=== PATIENT | female | born 1955 | race Caucasian/White ===

== ENCOUNTER 2018-12-25 12:12 | Inpatient (IN) ==
[2018-12-25] MEDS ORDERED: SODIUM CHLORIDE 0.9% 500 ML IV STA (13:37)
[2018-12-25 13:48] LABS: Basophils # 0.1 10*3/uL (0.0-0.2); Immature Granulocytes % 0.3 %; Immature Granulocytes Absolute 0.03 #; Lymphocytes % 14.5 % (21.3-54.2); Red Cell Distribution Width 13.1 % (9.3-17.3)
[2018-12-25 13:56] LABS: Alanine Aminotransferase 17 U/L (13-56); Albumin 3.4 G/DL (3.4-5.0); Alkaline Phosphatase 86 U/L (45-117); Aspartate Amino Transferase 11 U/L (0-37); Bilirubin,Total < 0.39 MG/DL (0.2-1.0); Blood Urea Nitrogen 12 MG/DL (7-18); Calcium 8.2 MG/DL (8.5-10.1); Glucose 96 MG/DL (74-106); Osmolality,Calculated 276.5 MOS/KG (273-304); Potassium 3.5 MMOL/L (3.5-5.1); Sodium 139 MMOL/L (136-145); Total Protein 6.4 G/DL (6.4-8.3)
[2018-12-25 14:09] LABS: Basophils % 0.7 % (0.0-0.8); Eosinophils # 0.2 10*3/uL (0.0-0.87); Hematocrit 39.9 VOL% (35.7-47.0); Lymphocytes # 1.3 10*3/uL (1.4-4.0); Mean Corpuscular HGB Conc 27.6 GM/DL (32-36); Mean Corpuscular Hemoglobin 28 PG (27-34); Mean Corpuscular Volume 101.5 FL (87-102); Mean Platelet Volume 10.2 FL (9.6-12.0); Monocytes % 10.9 % (1.7-12.7); Neutrophils # 6.4 10*3/uL (1.4-7.4); Neutrophils % 71.6 % (38.7-73.9); Platelet Count 236 T/CUMM (130-400); Red Blood Count 3.93 MC/CUMM (3.8-5.5)
[2018-12-25 14:18] LABS: Apearance,Urine CLEAR (Clear); Bilirubin,Urine Negative (Negative); Blood, Urine Large mg/dL (Negative); Glucose,Urine (UA) Negative (Negative); Ketones,Urine Negative (Negative); Mucus,Urine Occasional /LPF (Occasional); Nitrite,Urine Negative (Negative); Protein,Urine Negative; RBC,Urine 59 /HPF (0-4); Squamous Epithelial Cell,Urine Occasional /HPF (0-10); Urine Color Yellow (Yellow); Urine Specific Gravity 1.009 (1.001-1.035); Urine Urobilinogen < 2.0 EU/DL (0.2-1.0); WBC,Urine 1 /HPF (0-6)
[2018-12-25] MEDS ORDERED: ALBUTEROL/IPRATROPIUM 3 ML NEB RESP TX STA (15:03)
[2018-12-25] MEDS ORDERED: FUROSEMIDE 40 MG/4 ML VIAL IV STA (15:03)
[2018-12-25] MEDS ORDERED: PROMETHAZINE 25 MG/1 ML VIAL IM PRN (15:46)
[2018-12-25] MEDS ORDERED: ONDANSETRON 4 MG/2 ML VIAL IV PRN (15:46)
[2018-12-25] MEDS ORDERED: ASPIRIN 300 MG SUPP RECTAL ONE (15:50)
[2018-12-25 16:45] LABS: ABG Base Excess 10.8 MMOL/L (-2.5-2.5); ABG HCO3 42.2 MMOL/L (20-26); ABG Oxygen Saturation 97.7 % (95-100); ABG PO2 110.2 MM HG (80-95); ABG TCO2 45.5 MMOL/L (23-27)
[2018-12-25 16:52] LABS: ABG PCO2 107.5 MM HG (35-48); ABG PH 7.212 (7.35-7.45)
[2018-12-25] MEDS: HEPARIN 5,000 UNIT/1 ML VIAL SUBCUT SCH ×2 (18:02→23:27)
[2018-12-25] MEDS: methylPREDNISolone SOD SUC 40 MG/1 ML VIAL IV SCH ×2 (18:38→23:29)
[2018-12-25] MEDS: ALBUTEROL/IPRATROPIUM 3 ML NEB RESP TX SCH (20:00)
[2018-12-25] MEDS: THEOPHYLLINE ER 300 MG TABLET PO SCH (22:13)
[2018-12-25] MEDS: DOCUSATE SODIUM 100 MG CAPSULE PO SCH (22:13)
[2018-12-25 22:15] LABS: ABG Base Excess 12.3 MMOL/L (-2.5-2.5); ABG Oxygen Saturation 93.8 % (95-100); ABG PH 7.251 (7.35-7.45); ABG PO2 72.4 MM HG (80-95); ABG TCO2 40.4 MMOL/L (23-27); Allen Test Positive; Pt O2 Delivery Device Other
[2018-12-26] MEDS: ALBUTEROL/IPRATROPIUM 3 ML NEB RESP TX SCH ×4 (00:41→19:14)
[2018-12-26 04:15] LABS: ABG Base Excess 12.7 MMOL/L (-2.5-2.5); ABG HCO3 36.4 MMOL/L (20-26); ABG Oxygen Saturation 93.9 % (95-100); ABG PO2 72.6 MM HG (80-95); ABG TCO2 40.2 MMOL/L (23-27); Allen Test Positive; Pt O2 Delivery Device Other
[2018-12-26] MEDS: methylPREDNISolone SOD SUC 40 MG/1 ML VIAL IV SCH ×4 (04:27→21:55)
[2018-12-26 05:23] LABS: Basophils % 0.5 % (0.0-0.8); Hematocrit 38.5 VOL% (35.7-47.0); Hemoglobin 10.9 GM/DL (12.0-16.0); Immature Granulocytes % 0.4 %; Immature Granulocytes Absolute 0.03 #; Lymphocytes # 0.5 10*3/uL (1.4-4.0); Lymphocytes % 6.6 % (21.3-54.2); Mean Corpuscular HGB Conc 28.3 GM/DL (32-36); Mean Corpuscular Hemoglobin 28 PG (27-34); Mean Corpuscular Volume 99.5 FL (87-102); Mean Platelet Volume 10.2 FL (9.6-12.0); Monocytes # 0.3 10*3/uL (0.11-0.8); Neutrophils # 7.4 10*3/uL (1.4-7.4); Neutrophils % 89.5 % (38.7-73.9); Platelet Count 239 T/CUMM (130-400); Red Blood Count 3.87 MC/CUMM (3.8-5.5); Red Cell Distribution Width 13.1 % (9.3-17.3); White Blood Count 8.2 T/CUMM (4-12)
[2018-12-26 05:27] LABS: Albumin 3.1 G/DL (3.4-5.0); Bilirubin,Total 0.8 MG/DL (0.2-1.0); Calcium 8.4 MG/DL (8.5-10.1); Osmolality,Calculated 273.8 MOS/KG (273-304); Potassium 3.8 MMOL/L (3.5-5.1); Risk Ratio 3.21; Thyroid Stimulating Hormone 0.588 uIU/ml (0.358-3.74); Total Protein 6.6 G/DL (6.4-8.3); VLDL CHOLESTEROL 16.2 MG/DL
[2018-12-26] MEDS: DOCUSATE SODIUM 100 MG CAPSULE PO SCH ×2 (09:29→21:53)
[2018-12-26] MEDS: MONTELUKAST 10 MG TABLET PO SCH (09:29)
[2018-12-26] MEDS: METOPROLOL SUCCINATE XL 25 MG TABLET PO SCH (09:29)
[2018-12-26] MEDS: PANTOPRAZOLE 40 MG TABLET PO SCH (09:29)
[2018-12-26] MEDS: ASPIRIN EC 81 MG TABLET PO SCH (09:29)
[2018-12-26] MEDS: FUROSEMIDE 40 MG/4 ML VIAL IV SCH ×2 (09:32→16:55)
[2018-12-26] MEDS: HEPARIN 5,000 UNIT/1 ML VIAL SUBCUT SCH ×2 (09:32→16:55)
[2018-12-26] MEDS: MEROPENEM 500 MG in SODIUM CHLORIDE 0.9% 100 ML IV SCH ×2 (15:08→21:54)
[2018-12-26] MEDS: THEOPHYLLINE ER 300 MG TABLET PO SCH (21:53)
[2018-12-26] MEDS: ATORVASTATIN 40 MG TABLET PO SCH (21:53)
[2018-12-27] MEDS: ALBUTEROL/IPRATROPIUM 3 ML NEB RESP TX SCH ×4 (01:16→19:23)
[2018-12-27] MEDS: HEPARIN 5,000 UNIT/1 ML VIAL SUBCUT SCH ×4 (02:34→23:06)
[2018-12-27] MEDS: ACETAMINOPHEN 325 MG TABLET PO PRN ×2 (02:35→14:17)
[2018-12-27 03:19] LABS: ABG Base Excess 13.9 MMOL/L (-2.5-2.5); ABG HCO3 37.7 MMOL/L (20-26); ABG Oxygen Saturation 95.9 % (95-100); ABG PH 7.336 (7.35-7.45); ABG PO2 83.3 MM HG (80-95); ABG TCO2 39.5 MMOL/L (23-27); Allen Test Positive; Pt O2 Delivery Device Other
[2018-12-27 03:22] LABS: ABG PCO2 81.2 MM HG (35-48)
[2018-12-27] MEDS: methylPREDNISolone SOD SUC 40 MG/1 ML VIAL IV SCH ×4 (04:38→23:05)
[2018-12-27] MEDS: SIMETHICONE CHEW 125 MG TABLET PO PRN (04:38)
[2018-12-27 05:33] LABS: Albumin 2.9 G/DL (3.4-5.0); Bilirubin,Total 0.4 MG/DL (0.2-1.0); Calcium 8.1 MG/DL (8.5-10.1); Osmolality,Calculated 279.8 MOS/KG (273-304); Potassium 3.2 MMOL/L (3.5-5.1); Total Protein 6.1 G/DL (6.4-8.3)
[2018-12-27] MEDS: MEROPENEM 500 MG in SODIUM CHLORIDE 0.9% 100 ML IV SCH ×3 (05:44→23:05)
[2018-12-27 05:56] LABS: Basophils % 0.1 % (0.0-0.8); Hematocrit 34.9 VOL% (35.7-47.0); Immature Granulocytes % 0.5 %; Immature Granulocytes Absolute 0.05 #; Lymphocytes # 0.5 10*3/uL (1.4-4.0); Lymphocytes % 5.3 % (21.3-54.2); Mean Corpuscular HGB Conc 28.9 GM/DL (32-36); Mean Corpuscular Hemoglobin 28 PG (27-34); Mean Corpuscular Volume 97.8 FL (87-102); Mean Platelet Volume 10.5 FL (9.6-12.0); Monocytes # 0.5 10*3/uL (0.11-0.8); Neutrophils # 8.5 10*3/uL (1.4-7.4); Neutrophils % 89.1 % (38.7-73.9); Platelet Count 245 T/CUMM (130-400); Red Blood Count 3.57 MC/CUMM (3.8-5.5); Red Cell Distribution Width 13.1 % (9.3-17.3); White Blood Count 9.5 T/CUMM (4-12)
[2018-12-27 06:00] LABS: Hemoglobin 10.1 GM/DL (12.0-16.0)
[2018-12-27] MEDS ORDERED: MAGNESIUM SULF RIDER 4 GM in PREMIX 1 EACH IV PRN (07:02)
[2018-12-27] MEDS ORDERED: MAGNESIUM SULF RIDER 2 GM in PREMIX 1 EACH IV PRN (07:02)
[2018-12-27] MEDS: PANTOPRAZOLE 40 MG TABLET PO SCH (08:17)
[2018-12-27] MEDS: FUROSEMIDE 40 MG/4 ML VIAL IV SCH ×2 (08:17→16:05)
[2018-12-27] MEDS: MONTELUKAST 10 MG TABLET PO SCH (08:17)
[2018-12-27] MEDS: ASPIRIN EC 81 MG TABLET PO SCH (08:17)
[2018-12-27] MEDS: METOPROLOL SUCCINATE XL 25 MG TABLET PO SCH (08:17)
[2018-12-27] MEDS: DOCUSATE SODIUM 100 MG CAPSULE PO SCH ×2 (08:17→20:16)
[2018-12-27] MEDS: POTASSIUM CHLORIDE RIDER 10 MEQ in PREMIX 1 EACH IV PRN ×2 (09:01→14:59)
[2018-12-27] MEDS: THEOPHYLLINE ER 300 MG TABLET PO SCH (20:16)
[2018-12-27] MEDS: ATORVASTATIN 40 MG TABLET PO SCH (20:16)
[2018-12-27] MEDS: traZODone 50 MG TABLET PO PRN (20:38)
[2018-12-28] MEDS: ALBUTEROL/IPRATROPIUM 3 ML NEB RESP TX SCH ×4 (00:27→19:05)
[2018-12-28 04:58] LABS: ABG Base Excess 14.5 MMOL/L (-2.5-2.5); ABG HCO3 43.7 MMOL/L (20-26); ABG Oxygen Saturation 96.5 % (95-100); ABG PH 7.332 (7.35-7.45); ABG PO2 87.7 MM HG (80-95); ABG TCO2 46.3 MMOL/L (23-27); Allen Test Positive; Pt O2 Delivery Device Other
[2018-12-28 05:01] LABS: ABG PCO2 84.4 MM HG (35-48)
[2018-12-28] MEDS: methylPREDNISolone SOD SUC 40 MG/1 ML VIAL IV SCH ×4 (05:02→23:10)
[2018-12-28] MEDS: MEROPENEM 500 MG in SODIUM CHLORIDE 0.9% 100 ML IV SCH ×3 (05:02→23:09)
[2018-12-28 06:01] LABS: Basophils % 0.1 % (0.0-0.8); Immature Granulocytes % 0.6 %; Immature Granulocytes Absolute 0.07 #; Lymphocytes # 0.5 10*3/uL (1.4-4.0); Mean Corpuscular Hemoglobin 28 PG (27-34); Mean Corpuscular Volume 100.3 FL (87-102); Mean Platelet Volume 10.3 FL (9.6-12.0); Monocytes # 0.6 10*3/uL (0.11-0.8); Monocytes % 4.8 % (1.7-12.7); Neutrophils # 11.5 10*3/uL (1.4-7.4); Neutrophils % 90.5 % (38.7-73.9); Platelet Count 281 T/CUMM (130-400); Red Blood Count 3.74 MC/CUMM (3.8-5.5); Red Cell Distribution Width 13.1 % (9.3-17.3); White Blood Count 12.7 T/CUMM (4-12)
[2018-12-28 06:08] LABS: Albumin 3.1 G/DL (3.4-5.0); Bilirubin,Total 0.7 MG/DL (0.2-1.0); Calcium 8.1 MG/DL (8.5-10.1); Osmolality,Calculated 280.5 MOS/KG (273-304); Potassium 3.3 MMOL/L (3.5-5.1); Total Protein 6.4 G/DL (6.4-8.3)
[2018-12-28] MEDS: POTASSIUM CHLORIDE RIDER 10 MEQ in PREMIX 1 EACH IV PRN ×4 (06:30→14:58)
[2018-12-28 06:36] LABS: Hematocrit 36.9 VOL% (35.7-47.0); Hemoglobin 10.5 GM/DL (12.0-16.0)
[2018-12-28 06:47] LABS: Lymphocytes 2 % (20-55); Macrocytosis Slight; Total Cells Counted 100
[2018-12-28 06:48] LABS: Band Neutrophils 2 % (0-10)
[2018-12-28 06:49] LABS: Segmented Neutrophils 93 % (50-85)
[2018-12-28 06:50] LABS: Anisocytosis 1+; Hypochromasia 2+; Platelet Estimate Adequate; Tear Drop Cells Few
[2018-12-28] MEDS: FUROSEMIDE 40 MG/4 ML VIAL IV SCH ×2 (08:12→16:18)
[2018-12-28] MEDS: HEPARIN 5,000 UNIT/1 ML VIAL SUBCUT SCH ×3 (08:12→23:10)
[2018-12-28] MEDS: MONTELUKAST 10 MG TABLET PO SCH (08:12)
[2018-12-28] MEDS: METOPROLOL SUCCINATE XL 25 MG TABLET PO SCH (08:12)
[2018-12-28] MEDS: ASPIRIN EC 81 MG TABLET PO SCH (08:12)
[2018-12-28] MEDS: DOCUSATE SODIUM 100 MG CAPSULE PO SCH ×2 (08:12→20:12)
[2018-12-28] MEDS: PANTOPRAZOLE 40 MG TABLET PO SCH (08:12)
[2018-12-28] MEDS: THEOPHYLLINE ER 300 MG TABLET PO SCH (20:11)
[2018-12-28] MEDS: ATORVASTATIN 40 MG TABLET PO SCH (20:12)
[2018-12-28] MEDS: traZODone 50 MG TABLET PO PRN (20:12)
[2018-12-29] MEDS: ALBUTEROL/IPRATROPIUM 3 ML NEB RESP TX SCH ×4 (01:04→19:21)
[2018-12-29 04:22] LABS: ABG HCO3 33.7 MMOL/L (20-26); ABG Oxygen Saturation 96.3 % (95-100); ABG PH 7.332 (7.35-7.45); ABG TCO2 35.2 MMOL/L (23-27); Allen Test Positive
[2018-12-29 04:24] LABS: ABG PCO2 73.5 MM HG (35-48)
[2018-12-29] MEDS: methylPREDNISolone SOD SUC 40 MG/1 ML VIAL IV SCH ×4 (05:04→23:08)
[2018-12-29] MEDS: MEROPENEM 500 MG in SODIUM CHLORIDE 0.9% 100 ML IV SCH ×3 (05:04→23:08)
[2018-12-29] MEDS: ACETAMINOPHEN 325 MG TABLET PO PRN (05:05)
[2018-12-29 06:28] LABS: Alanine Aminotransferase 14 U/L (13-56); Albumin 2.7 G/DL (3.4-5.0); Alkaline Phosphatase 64 U/L (45-117); Aspartate Amino Transferase 7 U/L (0-37); Bilirubin,Total < 0.39 MG/DL (0.2-1.0); Blood Urea Nitrogen 24 MG/DL (7-18); Calcium 7.9 MG/DL (8.5-10.1); Glucose 144 MG/DL (74-106); Osmolality,Calculated 287.3 MOS/KG (273-304); Sodium 141 MMOL/L (136-145); Total Protein 5.8 G/DL (6.4-8.3)
[2018-12-29 06:30] LABS: Basophils % 0.1 % (0.0-0.8); Hematocrit 36.9 VOL% (35.7-47.0); Hemoglobin 10.5 GM/DL (12.0-16.0); Immature Granulocytes % 0.5 %; Immature Granulocytes Absolute 0.07 #; Lymphocytes # 0.4 10*3/uL (1.4-4.0); Mean Corpuscular HGB Conc 28.5 GM/DL (32-36); Mean Corpuscular Hemoglobin 28 PG (27-34); Mean Corpuscular Volume 99.5 FL (87-102); Mean Platelet Volume 10.5 FL (9.6-12.0); Monocytes # 0.8 10*3/uL (0.11-0.8); Monocytes % 5.8 % (1.7-12.7); Neutrophils # 12.3 10*3/uL (1.4-7.4); Neutrophils % 90.6 % (38.7-73.9); Platelet Count 301 T/CUMM (130-400); Red Blood Count 3.71 MC/CUMM (3.8-5.5); Red Cell Distribution Width 13.3 % (9.3-17.3); White Blood Count 13.6 T/CUMM (4-12)
[2018-12-29 06:56] LABS: Band Neutrophils 5 % (0-10); Lymphocytes 4 % (20-55); Macrocytosis 1+; Platelet Estimate Normal; Segmented Neutrophils 84 % (50-85); Spherocytes Few; Total Cells Counted 100
[2018-12-29] MEDS: FUROSEMIDE 40 MG/4 ML VIAL IV SCH ×2 (08:08→16:30)
[2018-12-29] MEDS: METOPROLOL SUCCINATE XL 25 MG TABLET PO SCH (08:08)
[2018-12-29] MEDS: MONTELUKAST 10 MG TABLET PO SCH (08:08)
[2018-12-29] MEDS: POTASSIUM CHLORIDE 20 MEQ TABLET PO SCH (08:08)
[2018-12-29] MEDS: ASPIRIN EC 81 MG TABLET PO SCH (08:08)
[2018-12-29] MEDS: HEPARIN 5,000 UNIT/1 ML VIAL SUBCUT SCH ×3 (08:09→23:08)
[2018-12-29] MEDS: DOCUSATE SODIUM 100 MG CAPSULE PO SCH ×2 (08:09→20:27)
[2018-12-29] MEDS: PANTOPRAZOLE 40 MG TABLET PO SCH (08:09)
[2018-12-29] MEDS: POTASSIUM CHLORIDE RIDER 10 MEQ in PREMIX 1 EACH IV PRN ×2 (08:20→16:41)
[2018-12-29] MEDS: THEOPHYLLINE ER 300 MG TABLET PO SCH (20:27)
[2018-12-29] MEDS: traZODone 50 MG TABLET PO PRN (20:28)
[2018-12-29] MEDS: ATORVASTATIN 40 MG TABLET PO SCH (20:28)
[2018-12-30] MEDS: ALBUTEROL/IPRATROPIUM 3 ML NEB RESP TX SCH ×4 (00:11→19:36)
[2018-12-30 05:05] LABS: ABG Base Excess 9.2 MMOL/L (-2.5-2.5); ABG HCO3 32.9 MMOL/L (20-26); ABG Oxygen Saturation 94.3 % (95-100); ABG PH 7.321 (7.35-7.45); ABG TCO2 34.7 MMOL/L (23-27); Pt O2 Delivery Device Ventilator
[2018-12-30 05:06] LABS: ABG PCO2 74.1 MM HG (35-48)
[2018-12-30] MEDS: methylPREDNISolone SOD SUC 40 MG/1 ML VIAL IV SCH ×4 (05:18→22:09)
[2018-12-30] MEDS: MEROPENEM 500 MG in SODIUM CHLORIDE 0.9% 100 ML IV SCH ×3 (05:19→22:10)
[2018-12-30 06:07] LABS: Calcium 7.8 MG/DL (8.5-10.1); Osmolality,Calculated 291.3 MOS/KG (273-304); Potassium 3.6 MMOL/L (3.5-5.1)
[2018-12-30 06:12] LABS: Basophils % 0.1 % (0.0-0.8); Hematocrit 36.6 VOL% (35.7-47.0); Immature Granulocytes % 0.6 %; Immature Granulocytes Absolute 0.08 #; Lymphocytes # 0.5 10*3/uL (1.4-4.0); Lymphocytes % 3.4 % (21.3-54.2); Mean Corpuscular HGB Conc 28.7 GM/DL (32-36); Mean Corpuscular Hemoglobin 29 PG (27-34); Mean Corpuscular Volume 99.7 FL (87-102); Mean Platelet Volume 10.5 FL (9.6-12.0); Monocytes # 0.9 10*3/uL (0.11-0.8); Monocytes % 6.7 % (1.7-12.7); Neutrophils # 11.8 10*3/uL (1.4-7.4); Neutrophils % 89.2 % (38.7-73.9); Platelet Count 289 T/CUMM (130-400); Red Blood Count 3.67 MC/CUMM (3.8-5.5); Red Cell Distribution Width 13.5 % (9.3-17.3); White Blood Count 13.2 T/CUMM (4-12)
[2018-12-30 06:17] LABS: Hemoglobin 10.5 GM/DL (12.0-16.0)
[2018-12-30 06:19] LABS: Band Neutrophils 1 % (0-10); Hypochromasia 1+; Lymphocytes 1 % (20-55); Platelet Estimate Adequate; Segmented Neutrophils 95 % (50-85); Total Cells Counted 100
[2018-12-30 06:20] LABS: Macrocytosis Slight
[2018-12-30] MEDS: FUROSEMIDE 40 MG/4 ML VIAL IV SCH ×2 (07:57→15:37)
[2018-12-30] MEDS: HEPARIN 5,000 UNIT/1 ML VIAL SUBCUT SCH ×2 (07:57→15:39)
[2018-12-30] MEDS: ASPIRIN EC 81 MG TABLET PO SCH (08:02)
[2018-12-30] MEDS: POTASSIUM CHLORIDE 20 MEQ TABLET PO SCH (08:02)
[2018-12-30] MEDS: METOPROLOL SUCCINATE XL 25 MG TABLET PO SCH (08:02)
[2018-12-30] MEDS: MONTELUKAST 10 MG TABLET PO SCH (08:02)
[2018-12-30] MEDS: PANTOPRAZOLE 40 MG TABLET PO SCH (08:02)
[2018-12-30] MEDS: DOCUSATE SODIUM 100 MG CAPSULE PO SCH ×2 (08:02→20:37)
[2018-12-30] MEDS: amLODIPine 2.5 MG TABLET PO SCH (16:40)
[2018-12-30] MEDS: CITALOPRAM 20 MG TABLET PO SCH (16:56)
[2018-12-30] MEDS ORDERED: CITALOPRAM 20 MG TABLET PO SCH (17:00)
[2018-12-30] MEDS: THEOPHYLLINE ER 300 MG TABLET PO SCH (20:37)
[2018-12-30] MEDS: traZODone 50 MG TABLET PO PRN (20:37)
[2018-12-30] MEDS: ATORVASTATIN 40 MG TABLET PO SCH (20:37)
[2018-12-31] MEDS: HEPARIN 5,000 UNIT/1 ML VIAL SUBCUT SCH ×3 (00:16→16:15)
[2018-12-31] MEDS: ALBUTEROL/IPRATROPIUM 3 ML NEB RESP TX SCH ×4 (00:21→20:14)
[2018-12-31 03:42] LABS: ABG Base Excess 11.5 MMOL/L (-2.5-2.5); ABG HCO3 35.2 MMOL/L (20-26); ABG PH 7.309 (7.35-7.45); ABG PO2 69.9 MM HG (80-95); ABG TCO2 37.7 MMOL/L (23-27); Allen Test Positive; Pt O2 Delivery Device Other
[2018-12-31 03:44] LABS: ABG PCO2 82.2 MM HG (35-48)
[2018-12-31] MEDS: MEROPENEM 500 MG in SODIUM CHLORIDE 0.9% 100 ML IV SCH ×3 (05:19→21:10)
[2018-12-31] MEDS: methylPREDNISolone SOD SUC 40 MG/1 ML VIAL IV SCH ×4 (05:19→21:11)
[2018-12-31 05:53] LABS: Albumin 2.4 G/DL (3.4-5.0); Bilirubin,Total 0.4 MG/DL (0.2-1.0); Osmolality,Calculated 286.4 MOS/KG (273-304); Potassium 3.8 MMOL/L (3.5-5.1); Total Protein 5.3 G/DL (6.4-8.3)
[2018-12-31] MEDS: POTASSIUM CHLORIDE RIDER 10 MEQ in PREMIX 1 EACH IV PRN ×2 (06:17→07:18)
[2018-12-31 06:34] LABS: Basophils % 0.2 % (0.0-0.8); Hematocrit 37.4 VOL% (35.7-47.0); Immature Granulocytes % 1.5 %; Immature Granulocytes Absolute 0.23 #; Lymphocytes # 0.9 10*3/uL (1.4-4.0); Lymphocytes % 5.8 % (21.3-54.2); Mean Corpuscular HGB Conc 27.8 GM/DL (32-36); Mean Corpuscular Hemoglobin 28 PG (27-34); Mean Corpuscular Volume 101.4 FL (87-102); Mean Platelet Volume 10.4 FL (9.6-12.0); Monocytes # 1.2 10*3/uL (0.11-0.8); Neutrophils # 12.6 10*3/uL (1.4-7.4); Neutrophils % 84.5 % (38.7-73.9); Platelet Count 287 T/CUMM (130-400); Red Blood Count 3.69 MC/CUMM (3.8-5.5); Red Cell Distribution Width 13.3 % (9.3-17.3); White Blood Count 14.9 T/CUMM (4-12)
[2018-12-31 06:35] LABS: Hemoglobin 10.4 GM/DL (12.0-16.0)
[2018-12-31 06:46] LABS: Platelet Estimate Normal; Polychromasia Few
[2018-12-31] MEDS: FUROSEMIDE 40 MG/4 ML VIAL IV SCH ×2 (09:08→16:16)
[2018-12-31] MEDS: ASPIRIN EC 81 MG TABLET PO SCH (09:09)
[2018-12-31] MEDS: DOCUSATE SODIUM 100 MG CAPSULE PO SCH ×2 (09:09→20:53)
[2018-12-31] MEDS: CITALOPRAM 20 MG TABLET PO SCH (09:09)
[2018-12-31] MEDS: MONTELUKAST 10 MG TABLET PO SCH (09:10)
[2018-12-31] MEDS: amLODIPine 2.5 MG TABLET PO SCH (09:10)
[2018-12-31] MEDS: POTASSIUM CHLORIDE 20 MEQ TABLET PO SCH (09:10)
[2018-12-31] MEDS: METOPROLOL SUCCINATE XL 25 MG TABLET PO SCH (09:10)
[2018-12-31] MEDS: PANTOPRAZOLE 40 MG TABLET PO SCH (09:10)
[2018-12-31] MEDS: ATORVASTATIN 40 MG TABLET PO SCH (20:52)
[2018-12-31] MEDS: THEOPHYLLINE ER 300 MG TABLET PO SCH (20:53)
[2018-12-31] MEDS: traZODone 50 MG TABLET PO PRN (22:45)
[2019-01-01] MEDS: HEPARIN 5,000 UNIT/1 ML VIAL SUBCUT SCH ×3 (00:19→15:13)
[2019-01-01] MEDS: ALBUTEROL/IPRATROPIUM 3 ML NEB RESP TX SCH ×4 (01:16→19:07)
[2019-01-01 04:00] LABS: ABG Base Excess 11.6 MMOL/L (-2.5-2.5); ABG HCO3 35.3 MMOL/L (20-26); ABG PH 7.294 (7.35-7.45); ABG PO2 74.5 MM HG (80-95); ABG TCO2 38.3 MMOL/L (23-27); Allen Test Positive; Pt O2 Delivery Device Other
[2019-01-01 04:03] LABS: ABG PCO2 86.4 MM HG (35-48)
[2019-01-01] MEDS: methylPREDNISolone SOD SUC 40 MG/1 ML VIAL IV SCH ×4 (04:59→23:53)
[2019-01-01] MEDS: MEROPENEM 500 MG in SODIUM CHLORIDE 0.9% 100 ML IV SCH (05:02)
[2019-01-01] MEDS: CLORAZEPATE 3.75 MG TABLET PO PRN (05:08)
[2019-01-01 05:46] LABS: Albumin 2.8 G/DL (3.4-5.0); Bilirubin,Total 1.1 MG/DL (0.2-1.0); Calcium 7.9 MG/DL (8.5-10.1); Osmolality,Calculated 286.3 MOS/KG (273-304); Total Protein 5.4 G/DL (6.4-8.3)
[2019-01-01 05:59] LABS: Basophils % 0.2 % (0.0-0.8); Hematocrit 37.9 VOL% (35.7-47.0); Immature Granulocytes Absolute 0.34 #; Lymphocytes # 0.7 10*3/uL (1.4-4.0); Lymphocytes % 3.9 % (21.3-54.2); Mean Corpuscular Hemoglobin 28 PG (27-34); Mean Corpuscular Volume 100.8 FL (87-102); Mean Platelet Volume 10.3 FL (9.6-12.0); Monocytes # 1.1 10*3/uL (0.11-0.8); Monocytes % 6.4 % (1.7-12.7); Neutrophils % 87.5 % (38.7-73.9); Platelet Count 316 T/CUMM (130-400); Red Blood Count 3.76 MC/CUMM (3.8-5.5); Red Cell Distribution Width 13.6 % (9.3-17.3); White Blood Count 17.1 T/CUMM (4-12)
[2019-01-01 06:02] LABS: Hemoglobin 10.6 GM/DL (12.0-16.0)
[2019-01-01 06:20] LABS: Band Neutrophils 1 % (0-10); Hypochromasia 1+; Lymphocytes 1 % (20-55); Ovalocytes Slight; Platelet Estimate Adequate; Segmented Neutrophils 90 % (50-85); Total Cells Counted 100
[2019-01-01 07:35] LABS: ABG Base Excess 11.4 MMOL/L (-2.5-2.5); ABG HCO3 35.2 MMOL/L (20-26); ABG Oxygen Saturation 95.1 % (95-100); ABG PH 7.306 (7.35-7.45); ABG TCO2 37.7 MMOL/L (23-27)
[2019-01-01 07:37] LABS: ABG PCO2 83.2 MM HG (35-48)
[2019-01-01] MEDS: METOPROLOL SUCCINATE XL 25 MG TABLET PO SCH (09:18)
[2019-01-01] MEDS: DOCUSATE SODIUM 100 MG CAPSULE PO SCH ×2 (09:18→20:46)
[2019-01-01] MEDS: ASPIRIN EC 81 MG TABLET PO SCH (09:18)
[2019-01-01] MEDS: CITALOPRAM 20 MG TABLET PO SCH (09:18)
[2019-01-01] MEDS: amLODIPine 2.5 MG TABLET PO SCH (09:19)
[2019-01-01] MEDS: MONTELUKAST 10 MG TABLET PO SCH (09:19)
[2019-01-01] MEDS: PANTOPRAZOLE 40 MG TABLET PO SCH (09:19)
[2019-01-01] MEDS: POTASSIUM CHLORIDE 20 MEQ TABLET PO SCH (09:19)
[2019-01-01] MEDS: FUROSEMIDE 40 MG/4 ML VIAL IV SCH ×2 (09:20→15:13)
[2019-01-01] MEDS: traZODone 50 MG TABLET PO PRN (20:46)
[2019-01-01] MEDS: THEOPHYLLINE ER 300 MG TABLET PO SCH (20:46)
[2019-01-01] MEDS: ATORVASTATIN 40 MG TABLET PO SCH (20:46)
[2019-01-02] MEDS: HEPARIN 5,000 UNIT/1 ML VIAL SUBCUT SCH ×4 (00:05→23:21)
[2019-01-02] MEDS: ALBUTEROL/IPRATROPIUM 3 ML NEB RESP TX SCH ×4 (00:09→19:01)
[2019-01-02] MEDS: ACETAMINOPHEN 325 MG TABLET PO PRN (00:14)
[2019-01-02] MEDS: methylPREDNISolone SOD SUC 40 MG/1 ML VIAL IV SCH ×3 (04:20→20:01)
[2019-01-02 05:34] LABS: Calcium 7.9 MG/DL (8.5-10.1); Osmolality,Calculated 281.7 MOS/KG (273-304); Potassium 4.4 MMOL/L (3.5-5.1)
[2019-01-02 05:51] LABS: Basophils % 0.2 % (0.0-0.8); Hematocrit 36.3 VOL% (35.7-47.0); Immature Granulocytes % 2.1 %; Immature Granulocytes Absolute 0.38 #; Lymphocytes # 0.6 10*3/uL (1.4-4.0); Lymphocytes % 3.5 % (21.3-54.2); Mean Corpuscular HGB Conc 28.4 GM/DL (32-36); Mean Corpuscular Hemoglobin 28 PG (27-34); Mean Corpuscular Volume 99.5 FL (87-102); Mean Platelet Volume 10.2 FL (9.6-12.0); Monocytes # 0.8 10*3/uL (0.11-0.8); Monocytes % 4.7 % (1.7-12.7); Neutrophils # 16.2 10*3/uL (1.4-7.4); Neutrophils % 89.5 % (38.7-73.9); Platelet Count 322 T/CUMM (130-400); Red Blood Count 3.65 MC/CUMM (3.8-5.5); Red Cell Distribution Width 13.5 % (9.3-17.3)
[2019-01-02 05:57] LABS: Hemoglobin 10.3 GM/DL (12.0-16.0); Hypochromasia 1+; Macrocytosis Slight
[2019-01-02 05:58] LABS: Platelet Estimate Normal
[2019-01-02 07:14] LABS: Anisocytosis Slight; Band Neutrophils 6 % (0-10); Lymphocytes 7 % (20-55); Segmented Neutrophils 85 % (50-85); Total Cells Counted 100
[2019-01-02] MEDS: METOPROLOL SUCCINATE XL 25 MG TABLET PO SCH (08:39)
[2019-01-02] MEDS: ASPIRIN EC 81 MG TABLET PO SCH (08:39)
[2019-01-02] MEDS: FUROSEMIDE 40 MG TABLET PO SCH ×2 (08:40→15:57)
[2019-01-02] MEDS: MONTELUKAST 10 MG TABLET PO SCH (08:40)
[2019-01-02] MEDS: amLODIPine 2.5 MG TABLET PO SCH (08:40)
[2019-01-02] MEDS: CITALOPRAM 20 MG TABLET PO SCH (08:40)
[2019-01-02] MEDS: DOCUSATE SODIUM 100 MG CAPSULE PO SCH ×2 (08:40→20:03)
[2019-01-02] MEDS: PANTOPRAZOLE 40 MG TABLET PO SCH (08:40)
[2019-01-02] MEDS: POTASSIUM CHLORIDE 20 MEQ TABLET PO SCH (08:41)
[2019-01-02 10:38] LABS: ABG Base Excess 10.9 MMOL/L (-2.5-2.5); ABG HCO3 34.5 MMOL/L (20-26); ABG Oxygen Saturation 90.5 % (95-100); ABG PH 7.308 (7.35-7.45); ABG PO2 62.4 MM HG (80-95)
[2019-01-02 10:41] LABS: ABG PCO2 81.7 MM HG (35-48)
[2019-01-02] MEDS: CLORAZEPATE 3.75 MG TABLET PO PRN (12:32)
[2019-01-02] MEDS: FLUCONAZOLE INJ 100 MG in IV BAG 1 EACH IV SCH (13:39)
[2019-01-02] MEDS: THEOPHYLLINE ER 300 MG TABLET PO SCH (20:02)
[2019-01-02] MEDS: ATORVASTATIN 40 MG TABLET PO SCH (20:03)
[2019-01-02] MEDS: traZODone 50 MG TABLET PO PRN (23:22)
[2019-01-03] MEDS: ALBUTEROL/IPRATROPIUM 3 ML NEB RESP TX SCH ×4 (01:03→19:28)
[2019-01-03 04:28] LABS: Allen Test Positive; Pt O2 Delivery Device Other
[2019-01-03 04:31] LABS: ABG Base Excess 11.8 MMOL/L (-2.5-2.5); ABG HCO3 35.3 MMOL/L (20-26); ABG Oxygen Saturation 86.5 % (95-100); ABG PH 7.341 (7.35-7.45); ABG PO2 53.3 MM HG (80-95)
[2019-01-03 05:30] LABS: ABG PCO2 75.6 MM HG (35-48)
[2019-01-03 05:32] LABS: Calcium 7.9 MG/DL (8.5-10.1); Osmolality,Calculated 282.7 MOS/KG (273-304); Potassium 4.2 MMOL/L (3.5-5.1)
[2019-01-03 05:33] LABS: Basophils # 0.1 10*3/uL (0.0-0.2); Basophils % 0.3 % (0.0-0.8); Eosinophils % 0.1 % (0.00-10.9); Hematocrit 39.2 VOL% (35.7-47.0); Hemoglobin 11.2 GM/DL (12.0-16.0); Immature Granulocytes % 2.8 %; Immature Granulocytes Absolute 0.52 #; Lymphocytes # 0.6 10*3/uL (1.4-4.0); Lymphocytes % 3.5 % (21.3-54.2); Mean Corpuscular HGB Conc 28.6 GM/DL (32-36); Mean Corpuscular Hemoglobin 29 PG (27-34); Mean Platelet Volume 10.5 FL (9.6-12.0); Monocytes # 0.8 10*3/uL (0.11-0.8); Monocytes % 4.5 % (1.7-12.7); Neutrophils # 16.3 10*3/uL (1.4-7.4); Neutrophils % 88.8 % (38.7-73.9); Platelet Count 321 T/CUMM (130-400); Red Blood Count 3.92 MC/CUMM (3.8-5.5); Red Cell Distribution Width 13.6 % (9.3-17.3); White Blood Count 18.3 T/CUMM (4-12)
[2019-01-03 05:50] LABS: Hypochromasia 1+; Lymphocytes 3 % (20-55); Platelet Estimate Adequate; Segmented Neutrophils 92 % (50-85); Total Cells Counted 100
[2019-01-03 05:51] LABS: Macrocytosis Slight
[2019-01-03] MEDS: amLODIPine 2.5 MG TABLET PO SCH (08:20)
[2019-01-03] MEDS: ASPIRIN EC 81 MG TABLET PO SCH (08:20)
[2019-01-03] MEDS: PANTOPRAZOLE 40 MG TABLET PO SCH (08:20)
[2019-01-03] MEDS: HEPARIN 5,000 UNIT/1 ML VIAL SUBCUT SCH ×2 (08:20→16:15)
[2019-01-03] MEDS: MONTELUKAST 10 MG TABLET PO SCH (08:20)
[2019-01-03] MEDS: METOPROLOL SUCCINATE XL 25 MG TABLET PO SCH (08:20)
[2019-01-03] MEDS: methylPREDNISolone SOD SUC 40 MG/1 ML VIAL IV SCH ×2 (08:20→21:50)
[2019-01-03] MEDS: FUROSEMIDE 40 MG TABLET PO SCH ×2 (08:21→16:15)
[2019-01-03] MEDS: CITALOPRAM 20 MG TABLET PO SCH (08:21)
[2019-01-03] MEDS: POTASSIUM CHLORIDE 20 MEQ TABLET PO SCH (08:21)
[2019-01-03] MEDS: DOCUSATE SODIUM 100 MG CAPSULE PO SCH ×2 (08:21→21:51)
[2019-01-03] MEDS: FLUCONAZOLE INJ 100 MG in IV BAG 1 EACH IV SCH (11:25)
[2019-01-03] MEDS: CLORAZEPATE 3.75 MG TABLET PO PRN (11:26)
[2019-01-03] MEDS: ATORVASTATIN 40 MG TABLET PO SCH (21:51)
[2019-01-03] MEDS: ACETAMINOPHEN 325 MG TABLET PO PRN (21:51)
[2019-01-03] MEDS: THEOPHYLLINE ER 300 MG TABLET PO SCH (21:51)
[2019-01-04] MEDS: HEPARIN 5,000 UNIT/1 ML VIAL SUBCUT SCH ×3 (00:09→16:45)
[2019-01-04] MEDS: ALBUTEROL/IPRATROPIUM 3 ML NEB RESP TX SCH ×4 (00:12→19:50)
[2019-01-04 03:57] LABS: ABG Base Excess 13.9 MMOL/L (-2.5-2.5); ABG HCO3 42.1 MMOL/L (20-26); ABG Oxygen Saturation 79.8 % (95-100); ABG PO2 46.1 MM HG (80-95); ABG TCO2 44.4 MMOL/L (23-27); Allen Test Positive; Pt O2 Delivery Device CPAP
[2019-01-04 03:59] LABS: ABG PCO2 74.5 MM HG (35-48)
[2019-01-04 05:30] LABS: Calcium 7.7 MG/DL (8.5-10.1); Osmolality,Calculated 285.5 MOS/KG (273-304); Potassium 4.4 MMOL/L (3.5-5.1)
[2019-01-04 05:44] LABS: Basophils % 0.2 % (0.0-0.8); Hematocrit 37.1 VOL% (35.7-47.0); Immature Granulocytes Absolute 0.41 #; Lymphocytes # 0.4 10*3/uL (1.4-4.0); Lymphocytes % 2.1 % (21.3-54.2); Mean Corpuscular HGB Conc 28.6 GM/DL (32-36); Mean Corpuscular Hemoglobin 29 PG (27-34); Mean Corpuscular Volume 100.8 FL (87-102); Mean Platelet Volume 10.4 FL (9.6-12.0); Monocytes # 0.7 10*3/uL (0.11-0.8); Monocytes % 3.4 % (1.7-12.7); Neutrophils # 19.3 10*3/uL (1.4-7.4); Neutrophils % 92.3 % (38.7-73.9); Platelet Count 297 T/CUMM (130-400); Red Blood Count 3.68 MC/CUMM (3.8-5.5); Red Cell Distribution Width 13.8 % (9.3-17.3); White Blood Count 20.9 T/CUMM (4-12)
[2019-01-04 05:46] LABS: Hemoglobin 10.6 GM/DL (12.0-16.0)
[2019-01-04 05:49] LABS: Lymphocytes 4 % (20-55); Platelet Estimate Normal; Polychromasia Few; Segmented Neutrophils 95 % (50-85); Total Cells Counted 100
[2019-01-04] MEDS: methylPREDNISolone SOD SUC 40 MG/1 ML VIAL IV SCH ×2 (08:53→19:57)
[2019-01-04] MEDS: POTASSIUM CHLORIDE 20 MEQ TABLET PO SCH (08:59)
[2019-01-04] MEDS: ASPIRIN EC 81 MG TABLET PO SCH (09:00)
[2019-01-04] MEDS: amLODIPine 2.5 MG TABLET PO SCH (09:00)
[2019-01-04] MEDS: MONTELUKAST 10 MG TABLET PO SCH (09:00)
[2019-01-04] MEDS: CITALOPRAM 20 MG TABLET PO SCH (09:00)
[2019-01-04] MEDS: FUROSEMIDE 40 MG TABLET PO SCH ×2 (09:01→16:46)
[2019-01-04] MEDS: DOCUSATE SODIUM 100 MG CAPSULE PO SCH ×2 (09:01→21:49)
[2019-01-04] MEDS: PANTOPRAZOLE 40 MG TABLET PO SCH (09:01)
[2019-01-04] MEDS: METOPROLOL SUCCINATE XL 25 MG TABLET PO SCH (09:05)
[2019-01-04] MEDS: acetaZOLAMIDE 250 MG TABLET PO SCH ×2 (09:05→21:49)
[2019-01-04] MEDS: FLUCONAZOLE INJ 100 MG in IV BAG 1 EACH IV SCH (10:56)
[2019-01-04] MEDS: SIMETHICONE CHEW 125 MG TABLET PO PRN (15:41)
[2019-01-04] MEDS: CLORAZEPATE 3.75 MG TABLET PO PRN (20:01)
[2019-01-04] MEDS: THEOPHYLLINE ER 300 MG TABLET PO SCH (21:49)
[2019-01-04] MEDS: ATORVASTATIN 40 MG TABLET PO SCH (21:49)
[2019-01-05] MEDS: HEPARIN 5,000 UNIT/1 ML VIAL SUBCUT SCH ×3 (00:48→15:49)
[2019-01-05] MEDS: ALBUTEROL/IPRATROPIUM 3 ML NEB RESP TX SCH ×4 (00:49→19:28)
[2019-01-05] MEDS: CLORAZEPATE 3.75 MG TABLET PO PRN ×3 (00:52→13:45)
[2019-01-05 03:47] LABS: ABG Base Excess 11.3 MMOL/L (-2.5-2.5); ABG HCO3 34.6 MMOL/L (20-26); ABG Oxygen Saturation 76.1 % (95-100); ABG PH 7.365 (7.35-7.45); ABG PO2 42.4 MM HG (80-95); ABG TCO2 35.8 MMOL/L (23-27); Allen Test Positive; Pt O2 Delivery Device CPAP
[2019-01-05 03:50] LABS: ABG PCO2 69.4 MM HG (35-48)
[2019-01-05 04:41] LABS: Calcium 7.8 MG/DL (8.5-10.1); Osmolality,Calculated 280.7 MOS/KG (273-304)
[2019-01-05 04:54] LABS: Basophils % 0.2 % (0.0-0.8); Hematocrit 37.1 VOL% (35.7-47.0); Hemoglobin 10.6 GM/DL (12.0-16.0); Immature Granulocytes % 2.8 %; Immature Granulocytes Absolute 0.51 #; Lymphocytes # 0.7 10*3/uL (1.4-4.0); Lymphocytes % 3.8 % (21.3-54.2); Mean Corpuscular HGB Conc 28.6 GM/DL (32-36); Mean Corpuscular Hemoglobin 28 PG (27-34); Mean Corpuscular Volume 99.2 FL (87-102); Mean Platelet Volume 10.3 FL (9.6-12.0); Monocytes % 5.5 % (1.7-12.7); Neutrophils # 16.1 10*3/uL (1.4-7.4); Neutrophils % 87.7 % (38.7-73.9); Platelet Count 295 T/CUMM (130-400); Red Blood Count 3.74 MC/CUMM (3.8-5.5); Red Cell Distribution Width 13.9 % (9.3-17.3); White Blood Count 18.4 T/CUMM (4-12)
[2019-01-05 05:22] LABS: Lymphocytes 6 % (20-55); Myelocytes 1 %; Segmented Neutrophils 88 % (50-85)
[2019-01-05 05:23] LABS: Platelet Estimate Normal; Total Cells Counted 100
[2019-01-05 05:24] LABS: Polychromasia Few
[2019-01-05] MEDS: methylPREDNISolone SOD SUC 40 MG/1 ML VIAL IV SCH (06:32)
[2019-01-05] MEDS: METOPROLOL SUCCINATE XL 25 MG TABLET PO SCH (09:16)
[2019-01-05] MEDS: FUROSEMIDE 40 MG TABLET PO SCH ×2 (09:17→15:48)
[2019-01-05] MEDS: MONTELUKAST 10 MG TABLET PO SCH (09:17)
[2019-01-05] MEDS: POTASSIUM CHLORIDE 20 MEQ TABLET PO SCH (09:17)
[2019-01-05] MEDS: amLODIPine 2.5 MG TABLET PO SCH (09:17)
[2019-01-05] MEDS: acetaZOLAMIDE 250 MG TABLET PO SCH ×2 (09:18→21:53)
[2019-01-05] MEDS: PANTOPRAZOLE 40 MG TABLET PO SCH (09:18)
[2019-01-05] MEDS: ASPIRIN EC 81 MG TABLET PO SCH (09:18)
[2019-01-05] MEDS: DOCUSATE SODIUM 100 MG CAPSULE PO SCH ×2 (09:18→21:53)
[2019-01-05] MEDS: CITALOPRAM 20 MG TABLET PO SCH (09:18)
[2019-01-05] MEDS: predniSONE 20 MG TABLET PO SCH (11:51)
[2019-01-05] MEDS: FLUCONAZOLE INJ 100 MG in IV BAG 1 EACH IV SCH (13:38)
[2019-01-05] MEDS: SIMETHICONE CHEW 125 MG TABLET PO SCH ×3 (13:38→21:53)
[2019-01-05 14:24] LABS: ABG Base Excess 7.2 MMOL/L (-2.5-2.5); ABG HCO3 30.9 MMOL/L (20-26); ABG Oxygen Saturation 90.9 % (95-100); ABG PH 7.287 (7.35-7.45); ABG PO2 65.9 MM HG (80-95); ABG TCO2 33.5 MMOL/L (23-27)
[2019-01-05 14:28] LABS: ABG PCO2 77.2 MM HG (35-48)
[2019-01-05] MEDS: THEOPHYLLINE ER 300 MG TABLET PO SCH (21:53)
[2019-01-05] MEDS: traZODone 50 MG TABLET PO PRN (21:53)
[2019-01-05] MEDS: ATORVASTATIN 40 MG TABLET PO SCH (21:53)
[2019-01-06] MEDS: HEPARIN 5,000 UNIT/1 ML VIAL SUBCUT SCH ×3 (00:22→15:25)
[2019-01-06] MEDS: ALBUTEROL/IPRATROPIUM 3 ML NEB RESP TX SCH ×4 (00:33→19:22)
[2019-01-06 04:11] LABS: ABG Base Excess 12.2 MMOL/L (-2.5-2.5); ABG HCO3 39.9 MMOL/L (20-26); ABG Oxygen Saturation 94.1 % (95-100); ABG PH 7.373 (7.35-7.45); ABG PO2 72.4 MM HG (80-95); ABG TCO2 42.1 MMOL/L (23-27); Allen Test Positive
[2019-01-06 04:15] LABS: ABG PCO2 70.2 MM HG (35-48)
[2019-01-06 05:02] LABS: Calcium 7.9 MG/DL (8.5-10.1); Osmolality,Calculated 279.5 MOS/KG (273-304)
[2019-01-06 05:17] LABS: Basophils % 0.2 % (0.0-0.8); Eosinophils # 0.1 10*3/uL (0.0-0.87); Eosinophils % 0.8 % (0.00-10.9); Hematocrit 35.2 VOL% (35.7-47.0); Lymphocytes # 1.7 10*3/uL (1.4-4.0); Lymphocytes % 11.3 % (21.3-54.2); Mean Corpuscular HGB Conc 28.1 GM/DL (32-36); Mean Corpuscular Hemoglobin 28 PG (27-34); Mean Platelet Volume 10.3 FL (9.6-12.0); Monocytes # 1.4 10*3/uL (0.11-0.8); Monocytes % 9.3 % (1.7-12.7); Neutrophils # 11.7 10*3/uL (1.4-7.4); Neutrophils % 76.4 % (38.7-73.9); Platelet Count 271 T/CUMM (130-400); Red Blood Count 3.52 MC/CUMM (3.8-5.5); Red Cell Distribution Width 14.2 % (9.3-17.3); White Blood Count 15.3 T/CUMM (4-12)
[2019-01-06 05:18] LABS: Hemoglobin 9.9 GM/DL (12.0-16.0)
[2019-01-06 05:48] LABS: Hypochromasia 1+; Platelet Estimate Normal
[2019-01-06] MEDS: ACETAMINOPHEN 325 MG TABLET PO PRN (06:36)
[2019-01-06] MEDS: MONTELUKAST 10 MG TABLET PO SCH (08:10)
[2019-01-06] MEDS: METOPROLOL SUCCINATE XL 25 MG TABLET PO SCH (08:10)
[2019-01-06] MEDS: acetaZOLAMIDE 250 MG TABLET PO SCH ×2 (08:10→21:00)
[2019-01-06] MEDS: predniSONE 20 MG TABLET PO SCH (08:11)
[2019-01-06] MEDS: CITALOPRAM 20 MG TABLET PO SCH (08:11)
[2019-01-06] MEDS: FUROSEMIDE 40 MG TABLET PO SCH ×2 (08:11→15:25)
[2019-01-06] MEDS: POTASSIUM CHLORIDE 20 MEQ TABLET PO SCH (08:12)
[2019-01-06] MEDS: ASPIRIN EC 81 MG TABLET PO SCH (08:12)
[2019-01-06] MEDS: DOCUSATE SODIUM 100 MG CAPSULE PO SCH ×2 (08:12→20:57)
[2019-01-06] MEDS: amLODIPine 2.5 MG TABLET PO SCH (08:13)
[2019-01-06] MEDS: PANTOPRAZOLE 40 MG TABLET PO SCH (08:13)
[2019-01-06] MEDS: SIMETHICONE CHEW 125 MG TABLET PO SCH ×4 (09:13→20:57)
[2019-01-06] MEDS: FLUCONAZOLE INJ 100 MG in IV BAG 1 EACH IV SCH (10:48)
[2019-01-06] MEDS: CLORAZEPATE 3.75 MG TABLET PO PRN (11:08)
[2019-01-06] MEDS: THEOPHYLLINE ER 300 MG TABLET PO SCH (20:57)
[2019-01-06] MEDS: ATORVASTATIN 40 MG TABLET PO SCH (20:58)
[2019-01-07] MEDS: ALBUTEROL/IPRATROPIUM 3 ML NEB RESP TX SCH ×4 (00:08→19:40)
[2019-01-07] MEDS: HEPARIN 5,000 UNIT/1 ML VIAL SUBCUT SCH ×3 (01:38→17:03)
[2019-01-07] MEDS ORDERED: SIMETHICONE CHEW 80 MG TABLET PO PRN (09:18)
[2019-01-07] MEDS ORDERED: ACETAMINOPHEN 325 MG TABLET PO PRN (10:15)
[2019-01-07] MEDS: CITALOPRAM 20 MG TABLET PO SCH (10:31)
[2019-01-07] MEDS: PANTOPRAZOLE 40 MG TABLET PO SCH (10:31)
[2019-01-07] MEDS: MONTELUKAST 10 MG TABLET PO SCH (10:31)
[2019-01-07] MEDS: acetaZOLAMIDE 250 MG TABLET PO SCH ×2 (10:31→20:59)
[2019-01-07] MEDS: SIMETHICONE CHEW 125 MG TABLET PO SCH ×4 (10:31→20:59)
[2019-01-07] MEDS: METOPROLOL SUCCINATE XL 25 MG TABLET PO SCH (10:31)
[2019-01-07] MEDS: POTASSIUM CHLORIDE 20 MEQ TABLET PO SCH (10:31)
[2019-01-07] MEDS: FUROSEMIDE 40 MG TABLET PO SCH ×2 (10:31→17:03)
[2019-01-07] MEDS: amLODIPine 2.5 MG TABLET PO SCH (10:32)
[2019-01-07] MEDS: ASPIRIN EC 81 MG TABLET PO SCH (10:32)
[2019-01-07] MEDS: DOCUSATE SODIUM 100 MG CAPSULE PO SCH ×2 (10:32→20:59)
[2019-01-07] MEDS: predniSONE 20 MG TABLET PO SCH (10:34)
[2019-01-07] MEDS: FLUCONAZOLE INJ 100 MG in IV BAG 1 EACH IV SCH (11:10)
[2019-01-07] MEDS: CLORAZEPATE 3.75 MG TABLET PO PRN (17:39)
[2019-01-07] MEDS: THEOPHYLLINE ER 300 MG TABLET PO SCH (20:59)
[2019-01-07] MEDS: ATORVASTATIN 40 MG TABLET PO SCH (20:59)
[2019-01-08] MEDS: ALBUTEROL/IPRATROPIUM 3 ML NEB RESP TX SCH ×4 (00:10→19:03)
[2019-01-08] MEDS: HEPARIN 5,000 UNIT/1 ML VIAL SUBCUT SCH ×2 (00:38→09:23)
[2019-01-08] MEDS: SIMETHICONE CHEW 125 MG TABLET PO SCH ×4 (09:22→21:52)
[2019-01-08] MEDS: FUROSEMIDE 40 MG TABLET PO SCH ×2 (09:22→17:21)
[2019-01-08] MEDS: MONTELUKAST 10 MG TABLET PO SCH (09:22)
[2019-01-08] MEDS: acetaZOLAMIDE 250 MG TABLET PO SCH ×2 (09:22→21:53)
[2019-01-08] MEDS: CITALOPRAM 20 MG TABLET PO SCH (09:22)
[2019-01-08] MEDS: predniSONE 20 MG TABLET PO SCH (09:22)
[2019-01-08] MEDS: PANTOPRAZOLE 40 MG TABLET PO SCH (09:23)
[2019-01-08] MEDS: amLODIPine 2.5 MG TABLET PO SCH (09:23)
[2019-01-08] MEDS: POTASSIUM CHLORIDE 20 MEQ TABLET PO SCH (09:23)
[2019-01-08] MEDS: ASPIRIN EC 81 MG TABLET PO SCH (09:23)
[2019-01-08] MEDS: METOPROLOL SUCCINATE XL 25 MG TABLET PO SCH (09:23)
[2019-01-08] MEDS: DOCUSATE SODIUM 100 MG CAPSULE PO SCH ×2 (09:23→21:52)
[2019-01-08 10:44] LABS: ABG HCO3 34.7 MMOL/L (20-26); ABG Oxygen Saturation 92.3 % (95-100); ABG PH 7.322 (7.35-7.45); ABG PO2 68.4 MM HG (80-95); ABG TCO2 36.7 MMOL/L (23-27)
[2019-01-08 10:46] LABS: ABG PCO2 78.1 MM HG (35-48)
[2019-01-08] MEDS: CLORAZEPATE 3.75 MG TABLET PO PRN (13:30)
[2019-01-08] MEDS: THEOPHYLLINE ER 300 MG TABLET PO SCH (21:53)
[2019-01-08] MEDS: ATORVASTATIN 40 MG TABLET PO SCH (21:53)
[2019-01-08] MEDS: traZODone 50 MG TABLET PO PRN (22:53)
[2019-01-09] MEDS: ALBUTEROL/IPRATROPIUM 3 ML NEB RESP TX SCH ×4 (00:26→19:40)
[2019-01-09 04:07] LABS: ABG Base Excess 13.6 MMOL/L (-2.5-2.5); ABG HCO3 37.1 MMOL/L (20-26); ABG Oxygen Saturation 79.8 % (95-100); ABG PH 7.366 (7.35-7.45); ABG TCO2 38.6 MMOL/L (23-27); Allen Test Positive; Pt O2 Delivery Device Other
[2019-01-09 04:15] LABS: ABG PCO2 73.8 MM HG (35-48)
[2019-01-09] MEDS: ASPIRIN EC 81 MG TABLET PO SCH (09:10)
[2019-01-09] MEDS: MONTELUKAST 10 MG TABLET PO SCH (09:11)
[2019-01-09] MEDS: predniSONE 20 MG TABLET PO SCH (09:11)
[2019-01-09] MEDS: CITALOPRAM 20 MG TABLET PO SCH (09:11)
[2019-01-09] MEDS: PANTOPRAZOLE 40 MG TABLET PO SCH (09:12)
[2019-01-09] MEDS: DOCUSATE SODIUM 100 MG CAPSULE PO SCH ×2 (09:12→21:41)
[2019-01-09] MEDS: METOPROLOL SUCCINATE XL 25 MG TABLET PO SCH (09:12)
[2019-01-09] MEDS: SIMETHICONE CHEW 125 MG TABLET PO SCH ×4 (09:12→21:41)
[2019-01-09] MEDS: POTASSIUM CHLORIDE 20 MEQ TABLET PO SCH (09:12)
[2019-01-09] MEDS: FUROSEMIDE 40 MG TABLET PO SCH ×2 (09:13→15:59)
[2019-01-09] MEDS: acetaZOLAMIDE 250 MG TABLET PO SCH ×2 (09:13→21:40)
[2019-01-09] MEDS: amLODIPine 2.5 MG TABLET PO SCH (09:13)
[2019-01-09] MEDS: CLORAZEPATE 3.75 MG TABLET PO PRN ×2 (10:22→15:59)
[2019-01-09 16:21] LABS: Basophils % 0.1 % (0.0-0.8); Eosinophils % 0.3 % (0.00-10.9); Hematocrit 38.1 VOL% (35.7-47.0); Immature Granulocytes % 0.9 %; Immature Granulocytes Absolute 0.13 #; Lymphocytes # 0.4 10*3/uL (1.4-4.0); Lymphocytes % 2.5 % (21.3-54.2); Mean Corpuscular Hemoglobin 28 PG (27-34); Mean Corpuscular Volume 104.7 FL (87-102); Mean Platelet Volume 10.3 FL (9.6-12.0); Monocytes # 0.4 10*3/uL (0.11-0.8); Monocytes % 2.6 % (1.7-12.7); Neutrophils # 13.5 10*3/uL (1.4-7.4); Neutrophils % 93.6 % (38.7-73.9); Platelet Count 236 T/CUMM (130-400); Red Blood Count 3.64 MC/CUMM (3.8-5.5); Red Cell Distribution Width 14.7 % (9.3-17.3); White Blood Count 14.4 T/CUMM (4-12)
[2019-01-09 16:27] LABS: Hemoglobin 10.3 GM/DL (12.0-16.0)
[2019-01-09 16:32] LABS: Calcium 8.2 MG/DL (8.5-10.1); Osmolality,Calculated 284.5 MOS/KG (273-304); Potassium 4.2 MMOL/L (3.5-5.1)
[2019-01-09 16:42] LABS: Hypochromasia Slight; Lymphocytes 4 % (20-55); Macrocytosis Slight; Platelet Estimate Normal; Segmented Neutrophils 95 % (50-85); Total Cells Counted 100
[2019-01-09] MEDS: ATORVASTATIN 40 MG TABLET PO SCH (21:40)
[2019-01-09] MEDS: THEOPHYLLINE ER 300 MG TABLET PO SCH (21:40)
[2019-01-09] MEDS: traZODone 50 MG TABLET PO PRN (21:40)
[2019-01-10] MEDS: ALBUTEROL/IPRATROPIUM 3 ML NEB RESP TX SCH ×3 (01:49→12:20)
[2019-01-10] MEDS: CLORAZEPATE 3.75 MG TABLET PO PRN (04:02)
[2019-01-10 04:17] LABS: ABG Base Excess 11.1 MMOL/L (-2.5-2.5); ABG HCO3 34.7 MMOL/L (20-26); ABG Oxygen Saturation 94.4 % (95-100); ABG PH 7.341 (7.35-7.45); ABG PO2 74.3 MM HG (80-95); ABG TCO2 36.3 MMOL/L (23-27); Allen Test Positive
[2019-01-10 04:20] LABS: ABG PCO2 73.4 MM HG (35-48)
[2019-01-10] MEDS: METOPROLOL SUCCINATE XL 25 MG TABLET PO SCH (08:24)
[2019-01-10] MEDS: POTASSIUM CHLORIDE 20 MEQ TABLET PO SCH (08:24)
[2019-01-10] MEDS: CITALOPRAM 20 MG TABLET PO SCH (08:24)
[2019-01-10] MEDS: ASPIRIN EC 81 MG TABLET PO SCH (08:25)
[2019-01-10] MEDS: DOCUSATE SODIUM 100 MG CAPSULE PO SCH (08:25)
[2019-01-10] MEDS: PANTOPRAZOLE 40 MG TABLET PO SCH (08:25)
[2019-01-10] MEDS: acetaZOLAMIDE 250 MG TABLET PO SCH (08:25)
[2019-01-10] MEDS: FUROSEMIDE 40 MG TABLET PO SCH (08:26)
[2019-01-10] MEDS: predniSONE 20 MG TABLET PO SCH (08:26)
[2019-01-10] MEDS: amLODIPine 2.5 MG TABLET PO SCH (08:26)
[2019-01-10] MEDS: MONTELUKAST 10 MG TABLET PO SCH (08:26)
[2019-01-10] MEDS: SIMETHICONE CHEW 125 MG TABLET PO SCH (08:28)
[2019-01-10 11:49] VITALS: BP 122/60
[2019-01-10] MEDS ORDERED: methylPREDNISolone 4 MG TABLET PO SCH (14:00)
== END 2019-01-10 11:55 | disposition swing bed (61) | DRG 189 ==
LOC: EDUNIT# → EDBD → N.ED 12:12 → N.EDINP 15:47 → SUATTDRO 15:47 → N.ICU 21:58 → N.5E 01-04 19:38
PROVIDERS: ADMIT Internal Medicine; ATTEND Internal Medicine

== ENCOUNTER 2019-01-19 13:51 | Inpatient (IN) ==
[2019-01-19] MEDS ORDERED: ONDANSETRON 4 MG/2 ML VIAL IV PRN (17:05)
[2019-01-19] MEDS ORDERED: PROMETHAZINE 25 MG/1 ML VIAL IM PRN (17:05)
[2019-01-19 17:28] LABS: ABG Base Excess 8.4 MMOL/L (-2.5-2.5); ABG Oxygen Saturation 44.8 % (95-100); ABG PH 7.235 (7.35-7.45); ABG TCO2 37.1 MMOL/L (23-27); Pt O2 Delivery Device Other
[2019-01-19 17:30] LABS: ABG PCO2 95.2 MM HG (35-48); ABG PO2 26.1 MM HG (80-95)
[2019-01-19 17:45] LABS: Apearance,Urine CLEAR (Clear); Bilirubin,Urine Negative (Negative); Blood, Urine Negative (Negative); Glucose,Urine (UA) Negative (Negative); Ketones,Urine Negative (Negative); Nitrite,Urine Negative (Negative); Protein,Urine Negative; RBC,Urine <1 /HPF (0-4); Squamous Epithelial Cell,Urine Occasional /HPF (0-10); Urine Color Dark yellow (Yellow); Urine Specific Gravity 1.014 (1.001-1.035); Urine Urobilinogen < 2.0 EU/DL (0.2-1.0); WBC,Urine 1 /HPF (0-6)
[2019-01-19 17:46] LABS: Basophils % 0.4 % (0.0-0.8); Eosinophils % 0.2 % (0.00-10.9); Hematocrit 44.7 VOL% (35.7-47.0); Hemoglobin 11.7 GM/DL (12.0-16.0); Immature Granulocytes % 0.4 %; Immature Granulocytes Absolute 0.04 #; Lymphocytes # 0.3 10*3/uL (1.4-4.0); Mean Corpuscular HGB Conc 26.2 GM/DL (32-36); Mean Corpuscular Volume 108.8 FL (87-102); Mean Platelet Volume 9.8 FL (9.6-12.0); Monocytes % 1.4 % (1.7-12.7); Neutrophils % 94.6 % (38.7-73.9); Platelet Count 192 T/CUMM (130-400); Red Blood Count 4.11 MC/CUMM (3.8-5.5); Red Cell Distribution Width 14.6 % (9.3-17.3); White Blood Count 11.1 T/CUMM (4-12)
[2019-01-19 17:54] LABS: INR 0.9; PT Patient Result 9.9 SECS
[2019-01-19 17:58] LABS: Albumin 3.7 G/DL (3.4-5.0); Bilirubin,Total 0.5 MG/DL (0.2-1.0); Calcium 8.6 MG/DL (8.5-10.1); Osmolality,Calculated 270.4 MOS/KG (273-304); Total Protein 7.7 G/DL (6.4-8.3)
[2019-01-19 18:06] LABS: Risk Ratio 2.28; Thyroid Stimulating Hormone 1.14 uIU/ml (0.358-3.74); VLDL CHOLESTEROL 28.8 MG/DL
[2019-01-19 18:07] LABS: Band Neutrophils 1 % (0-10); Lymphocytes 2 % (20-55); Segmented Neutrophils 94 % (50-85); Total Cells Counted 100
[2019-01-19 18:08] LABS: Platelet Estimate Adequate; Stomatocytes Few
[2019-01-19] MEDS: ENOXAPARIN 40 MG/0.4 ML SYRINGE SUBCUT SCH (18:45)
[2019-01-19] MEDS: PANTOPRAZOLE 40 MG VIAL IV SCH (18:45)
[2019-01-19] MEDS: CEFEPIME 1,000 MG in SYRINGE 1 EACH IV SCH (18:54)
[2019-01-19] MEDS ORDERED: ALBUTEROL/IPRATROPIUM 3 ML NEB RESP TX SCH (19:00)
[2019-01-19] MEDS: methylPREDNISolone SOD SUC 125 MG/2 ML VIAL IV SCH (19:22)
[2019-01-19] MEDS: ALBUTEROL/IPRATROPIUM 3 ML NEB RESP TX SCH ×2 (19:45→23:47)
[2019-01-19] MEDS: VANCOMYCIN INJ 1,250 MG in SODIUM CHLORIDE 0.9% 250 ML IV SCH (19:45)
[2019-01-19 21:23] LABS: ABG Base Excess 4.5 MMOL/L (-2.5-2.5); ABG HCO3 27.9 MMOL/L (20-26); ABG Oxygen Saturation 74.2 % (95-100); ABG PO2 48.1 MM HG (80-95); ABG TCO2 38.9 MMOL/L (23-27); Allen Test Positive; Pt O2 Delivery Device Other
[2019-01-19 21:26] LABS: ABG PH 7.074 (7.35-7.45)
[2019-01-19] MEDS: MONTELUKAST 10 MG TABLET PO SCH (21:51)
[2019-01-19] MEDS: BUDESONIDE/FORMOTEROL 160-4.5 INHALER 6 GM INH SCH (21:51)
[2019-01-19 22:57] LABS: Allen Test Positive; Pt O2 Delivery Device Other
[2019-01-19 22:58] LABS: ABG Base Excess 5.5 MMOL/L (-2.5-2.5); ABG HCO3 28.7 MMOL/L (20-26); ABG Oxygen Saturation 60.4 % (95-100); ABG TCO2 36.9 MMOL/L (23-27)
[2019-01-19 23:03] LABS: ABG PO2 35.7 MM HG (80-95)
[2019-01-20 01:30] LABS: Allen Test Positive; Pt O2 Delivery Device Other
[2019-01-20 01:39] LABS: ABG Base Excess 8.1 MMOL/L (-2.5-2.5); ABG Oxygen Saturation 55.8 % (95-100); ABG TCO2 37.7 MMOL/L (23-27)
[2019-01-20 01:41] LABS: ABG PH 7.206 (7.35-7.45)
[2019-01-20] MEDS: methylPREDNISolone SOD SUC 125 MG/2 ML VIAL IV SCH ×4 (02:07→18:32)
[2019-01-20 03:40] LABS: ABG Base Excess 9.1 MMOL/L (-2.5-2.5); ABG HCO3 40.2 MMOL/L (20-26); ABG Oxygen Saturation 55.9 % (95-100); ABG TCO2 43.3 MMOL/L (23-27); Allen Test Positive; Pt O2 Delivery Device Other
[2019-01-20 03:46] LABS: ABG PCO2 100.6 MM HG (35-48); ABG PO2 31.3 MM HG (80-95)
[2019-01-20] MEDS: ALBUTEROL/IPRATROPIUM 3 ML NEB RESP TX SCH ×6 (03:56→23:05)
[2019-01-20 04:34] LABS: Albumin 3.3 G/DL (3.4-5.0); Bilirubin,Total 1.2 MG/DL (0.2-1.0); Calcium 8.4 MG/DL (8.5-10.1); Osmolality,Calculated 272.2 MOS/KG (273-304); Total Protein 6.8 G/DL (6.4-8.3)
[2019-01-20 05:05] LABS: Hematocrit 40.5 VOL% (35.7-47.0); Hemoglobin 11.3 GM/DL (12.0-16.0); Immature Granulocytes % 0.5 %; Immature Granulocytes Absolute 0.04 #; Lymphocytes # 0.3 10*3/uL (1.4-4.0); Lymphocytes % 3.7 % (21.3-54.2); Mean Corpuscular HGB Conc 27.9 GM/DL (32-36); Mean Corpuscular Volume 104.1 FL (87-102); Mean Platelet Volume 10.7 FL (9.6-12.0); Monocytes % 1.6 % (1.7-12.7); Neutrophils % 94.2 % (38.7-73.9); Platelet Count 183 T/CUMM (130-400); Red Blood Count 3.89 MC/CUMM (3.8-5.5); Red Cell Distribution Width 14.5 % (9.3-17.3); White Blood Count 7.9 T/CUMM (4-12)
[2019-01-20 05:10] LABS: Band Neutrophils 1 % (0-10); Lymphocytes 2 % (20-55); Segmented Neutrophils 97 % (50-85); Total Cells Counted 100
[2019-01-20 05:11] LABS: Anisocytosis 1+; Macrocytosis 1+; Ovalocytes Few; Platelet Estimate Normal
[2019-01-20] MEDS: CEFEPIME 1,000 MG in SYRINGE 1 EACH IV SCH ×2 (06:01→17:50)
[2019-01-20] MEDS: BUDESONIDE/FORMOTEROL 160-4.5 INHALER 6 GM INH SCH ×2 (08:00→20:47)
[2019-01-20] MEDS: VANCOMYCIN INJ 1,250 MG in SODIUM CHLORIDE 0.9% 250 ML IV SCH ×2 (08:00→20:45)
[2019-01-20] MEDS: DOCUSATE SODIUM 100 MG CAPSULE PO SCH ×2 (13:08→20:46)
[2019-01-20] MEDS: SIMETHICONE CHEW 125 MG TABLET PO SCH ×3 (13:08→20:47)
[2019-01-20] MEDS: ENOXAPARIN 40 MG/0.4 ML SYRINGE SUBCUT SCH (17:57)
[2019-01-20] MEDS: PANTOPRAZOLE 40 MG VIAL IV SCH (17:57)
[2019-01-20] MEDS: MONTELUKAST 10 MG TABLET PO SCH (20:47)
[2019-01-20] MEDS: THEOPHYLLINE ER 300 MG TABLET PO SCH (20:48)
[2019-01-21] MEDS: methylPREDNISolone SOD SUC 125 MG/2 ML VIAL IV SCH ×4 (00:51→18:01)
[2019-01-21] MEDS: ALBUTEROL/IPRATROPIUM 3 ML NEB RESP TX SCH ×6 (02:55→23:42)
[2019-01-21 04:17] LABS: ABG Base Excess 10.4 MMOL/L (-2.5-2.5); ABG Oxygen Saturation 86.4 % (95-100); ABG PCO2 60.6 MM HG (35-48); ABG PH 7.404 (7.35-7.45); ABG PO2 51.2 MM HG (80-95); ABG TCO2 38.9 MMOL/L (23-27); Allen Test Positive; Pt O2 Delivery Device Other
[2019-01-21 04:31] LABS: Albumin 3.2 G/DL (3.4-5.0); Bilirubin,Total 0.9 MG/DL (0.2-1.0); Calcium 8.3 MG/DL (8.5-10.1); Osmolality,Calculated 279.7 MOS/KG (273-304); Total Protein 6.5 G/DL (6.4-8.3)
[2019-01-21 04:35] LABS: Hemoglobin 10.4 GM/DL (12.0-16.0); Immature Granulocytes % 0.5 %; Immature Granulocytes Absolute 0.03 #; Lymphocytes # 0.3 10*3/uL (1.4-4.0); Lymphocytes % 4.7 % (21.3-54.2); Mean Corpuscular HGB Conc 28.7 GM/DL (32-36); Mean Corpuscular Volume 101.1 FL (87-102); Mean Platelet Volume 10.7 FL (9.6-12.0); Monocytes % 5.6 % (1.7-12.7); Neutrophils % 89.2 % (38.7-73.9); Platelet Count 204 T/CUMM (130-400); Red Blood Count 3.59 MC/CUMM (3.8-5.5); Red Cell Distribution Width 14.8 % (9.3-17.3); White Blood Count 6.5 T/CUMM (4-12)
[2019-01-21 04:36] LABS: Hematocrit 36.3 VOL% (35.7-47.0)
[2019-01-21 05:32] LABS: Lymphocytes 5 % (20-55); Platelet Estimate Adequate; Polychromasia Few; Segmented Neutrophils 93 % (50-85); Total Cells Counted 100
[2019-01-21] MEDS: CEFEPIME 1,000 MG in SYRINGE 1 EACH IV SCH ×2 (06:11→17:50)
[2019-01-21] MEDS: SIMETHICONE CHEW 125 MG TABLET PO SCH ×4 (08:23→20:26)
[2019-01-21] MEDS: DOCUSATE SODIUM 100 MG CAPSULE PO SCH ×2 (08:23→20:26)
[2019-01-21] MEDS: BUDESONIDE/FORMOTEROL 160-4.5 INHALER 6 GM INH SCH ×2 (08:23→20:26)
[2019-01-21] MEDS: VANCOMYCIN INJ 1,250 MG in SODIUM CHLORIDE 0.9% 250 ML IV SCH ×2 (08:23→20:30)
[2019-01-21] MEDS: amLODIPine 2.5 MG TABLET PO SCH (10:56)
[2019-01-21] MEDS: ASPIRIN EC 81 MG TABLET PO SCH (10:56)
[2019-01-21] MEDS: METOPROLOL SUCCINATE XL 25 MG TABLET PO SCH (10:56)
[2019-01-21] MEDS: CLORAZEPATE 3.75 MG TABLET PO PRN (10:56)
[2019-01-21] MEDS: CITALOPRAM 20 MG TABLET PO SCH (12:44)
[2019-01-21] MEDS: ACETAMINOPHEN 325 MG TABLET PO PRN ×2 (15:23→21:04)
[2019-01-21] MEDS: PANTOPRAZOLE 40 MG VIAL IV SCH (17:50)
[2019-01-21] MEDS: ENOXAPARIN 40 MG/0.4 ML SYRINGE SUBCUT SCH (17:50)
[2019-01-21] MEDS: MONTELUKAST 10 MG TABLET PO SCH (20:26)
[2019-01-21] MEDS: THEOPHYLLINE ER 300 MG TABLET PO SCH (20:26)
[2019-01-22] MEDS: methylPREDNISolone SOD SUC 125 MG/2 ML VIAL IV SCH ×4 (01:11→18:25)
[2019-01-22] MEDS: ALBUTEROL/IPRATROPIUM 3 ML NEB RESP TX SCH ×6 (02:55→22:57)
[2019-01-22 03:10] LABS: ABG Base Excess 8.3 MMOL/L (-2.5-2.5); ABG HCO3 31.9 MMOL/L (20-26); ABG Oxygen Saturation 90.5 % (95-100); ABG PCO2 63.2 MM HG (35-48); ABG PH 7.362 (7.35-7.45); ABG PO2 60.3 MM HG (80-95); ABG TCO2 32.6 MMOL/L (23-27); Allen Test Positive; Pt O2 Delivery Device Other
[2019-01-22 04:41] LABS: Basophils % 0.1 % (0.0-0.8); Hematocrit 36.4 VOL% (35.7-47.0); Hemoglobin 10.7 GM/DL (12.0-16.0); Immature Granulocytes % 0.7 %; Immature Granulocytes Absolute 0.05 #; Lymphocytes # 0.4 10*3/uL (1.4-4.0); Lymphocytes % 4.7 % (21.3-54.2); Mean Corpuscular HGB Conc 29.4 GM/DL (32-36); Mean Corpuscular Volume 99.2 FL (87-102); Mean Platelet Volume 10.5 FL (9.6-12.0); Monocytes % 7.2 % (1.7-12.7); Neutrophils % 87.3 % (38.7-73.9); Platelet Count 234 T/CUMM (130-400); Red Blood Count 3.67 MC/CUMM (3.8-5.5); Red Cell Distribution Width 15.1 % (9.3-17.3); White Blood Count 7.5 T/CUMM (4-12)
[2019-01-22 04:50] LABS: Bilirubin,Total 0.6 MG/DL (0.2-1.0); Calcium 8.3 MG/DL (8.5-10.1); Total Protein 6.4 G/DL (6.4-8.3)
[2019-01-22 05:44] LABS: Lymphocytes 5 % (20-55); Segmented Neutrophils 87 % (50-85); Total Cells Counted 100
[2019-01-22 05:45] LABS: Platelet Estimate Normal; Polychromasia Few
[2019-01-22] MEDS: CEFEPIME 1,000 MG in SYRINGE 1 EACH IV SCH ×2 (06:23→18:30)
[2019-01-22] MEDS: ACETAMINOPHEN 325 MG TABLET PO PRN ×2 (07:35→18:30)
[2019-01-22] MEDS: VANCOMYCIN INJ 1,250 MG in SODIUM CHLORIDE 0.9% 250 ML IV SCH ×2 (07:50→20:12)
[2019-01-22] MEDS: amLODIPine 2.5 MG TABLET PO SCH (08:55)
[2019-01-22] MEDS: SIMETHICONE CHEW 125 MG TABLET PO SCH ×4 (08:55→20:11)
[2019-01-22] MEDS: CITALOPRAM 20 MG TABLET PO SCH (08:55)
[2019-01-22] MEDS: POTASSIUM CHLORIDE 10 MEQ TABLET PO SCH (08:55)
[2019-01-22] MEDS: ASPIRIN EC 81 MG TABLET PO SCH (08:55)
[2019-01-22] MEDS: METOPROLOL SUCCINATE XL 25 MG TABLET PO SCH (08:55)
[2019-01-22] MEDS: DOCUSATE SODIUM 100 MG CAPSULE PO SCH ×2 (08:55→20:11)
[2019-01-22] MEDS: BUDESONIDE/FORMOTEROL 160-4.5 INHALER 6 GM INH SCH ×2 (09:00→20:13)
[2019-01-22] MEDS: CLORAZEPATE 3.75 MG TABLET PO PRN ×3 (13:00→22:14)
[2019-01-22] MEDS: PANTOPRAZOLE 40 MG VIAL IV SCH (17:10)
[2019-01-22] MEDS: ALBUTEROL 2.5 MG/3 ML NEB RESP TX PRN (17:32)
[2019-01-22] MEDS: ENOXAPARIN 40 MG/0.4 ML SYRINGE SUBCUT SCH (18:35)
[2019-01-22] MEDS: THEOPHYLLINE ER 300 MG TABLET PO SCH (20:11)
[2019-01-22] MEDS: MONTELUKAST 10 MG TABLET PO SCH (20:11)
[2019-01-23] MEDS: methylPREDNISolone SOD SUC 125 MG/2 ML VIAL IV SCH ×4 (01:13→18:15)
[2019-01-23] MEDS: ALBUTEROL/IPRATROPIUM 3 ML NEB RESP TX SCH ×6 (02:35→22:51)
[2019-01-23 03:53] LABS: ABG HCO3 28.8 MMOL/L (20-26); ABG Oxygen Saturation 93.5 % (95-100); ABG PCO2 67.3 MM HG (35-48); ABG PH 7.304 (7.35-7.45); ABG PO2 69.3 MM HG (80-95); ABG TCO2 30.4 MMOL/L (23-27); Allen Test Positive
[2019-01-23 04:17] LABS: Basophils % 0.1 % (0.0-0.8); Hematocrit 37.6 VOL% (35.7-47.0); Hemoglobin 10.8 GM/DL (12.0-16.0); Immature Granulocytes % 0.5 %; Immature Granulocytes Absolute 0.04 #; Lymphocytes # 0.3 10*3/uL (1.4-4.0); Lymphocytes % 3.3 % (21.3-54.2); Mean Corpuscular HGB Conc 28.7 GM/DL (32-36); Mean Corpuscular Volume 101.3 FL (87-102); Mean Platelet Volume 10.3 FL (9.6-12.0); Neutrophils % 88.1 % (38.7-73.9); Platelet Count 257 T/CUMM (130-400); Red Blood Count 3.71 MC/CUMM (3.8-5.5); White Blood Count 8.2 T/CUMM (4-12)
[2019-01-23 04:29] LABS: Calcium 8.2 MG/DL (8.5-10.1)
[2019-01-23 04:50] LABS: Anisocytosis 1+; Band Neutrophils 4 % (0-10); Lymphocytes 4 % (20-55); Macrocytosis 1+; Platelet Estimate Normal; Polychromasia Few; Segmented Neutrophils 84 % (50-85); Total Cells Counted 100
[2019-01-23] MEDS: CEFEPIME 1,000 MG in SYRINGE 1 EACH IV SCH ×2 (05:42→18:05)
[2019-01-23] MEDS: VANCOMYCIN INJ 1,250 MG in SODIUM CHLORIDE 0.9% 250 ML IV SCH (07:30)
[2019-01-23] MEDS: amLODIPine 2.5 MG TABLET PO SCH (08:35)
[2019-01-23] MEDS: DOCUSATE SODIUM 100 MG CAPSULE PO SCH ×2 (08:35→20:20)
[2019-01-23] MEDS: POTASSIUM CHLORIDE 10 MEQ TABLET PO SCH (08:35)
[2019-01-23] MEDS: SIMETHICONE CHEW 125 MG TABLET PO SCH ×4 (08:35→20:20)
[2019-01-23] MEDS: METOPROLOL SUCCINATE XL 25 MG TABLET PO SCH (08:35)
[2019-01-23] MEDS: CITALOPRAM 20 MG TABLET PO SCH (08:35)
[2019-01-23] MEDS: ASPIRIN EC 81 MG TABLET PO SCH (08:35)
[2019-01-23] MEDS: BUDESONIDE/FORMOTEROL 160-4.5 INHALER 6 GM INH SCH ×2 (08:45→20:20)
[2019-01-23] MEDS: CLORAZEPATE 3.75 MG TABLET PO PRN ×2 (10:02→20:20)
[2019-01-23] MEDS ORDERED: traZODone 50 MG TABLET PO PRN (11:29)
[2019-01-23] MEDS: PANTOPRAZOLE 40 MG VIAL IV SCH (17:50)
[2019-01-23] MEDS: ALBUTEROL 2.5 MG/3 ML NEB RESP TX PRN (17:55)
[2019-01-23] MEDS: ENOXAPARIN 40 MG/0.4 ML SYRINGE SUBCUT SCH (18:05)
[2019-01-23] MEDS: THEOPHYLLINE ER 300 MG TABLET PO SCH (20:20)
[2019-01-23] MEDS: MONTELUKAST 10 MG TABLET PO SCH (20:20)
[2019-01-24] MEDS: methylPREDNISolone SOD SUC 125 MG/2 ML VIAL IV SCH ×3 (01:21→18:43)
[2019-01-24] MEDS: ALBUTEROL/IPRATROPIUM 3 ML NEB RESP TX SCH ×6 (03:40→23:08)
[2019-01-24 03:45] LABS: ABG Base Excess 4.8 MMOL/L (-2.5-2.5); ABG HCO3 28.6 MMOL/L (20-26); ABG Oxygen Saturation 91.2 % (95-100); ABG PO2 64.2 MM HG (80-95); ABG TCO2 32.9 MMOL/L (23-27); Allen Test Positive
[2019-01-24 03:47] LABS: ABG PH 7.222 (7.35-7.45)
[2019-01-24] MEDS: CEFEPIME 1,000 MG in SYRINGE 1 EACH IV SCH ×2 (06:28→17:45)
[2019-01-24] MEDS: amLODIPine 2.5 MG TABLET PO SCH (08:59)
[2019-01-24] MEDS: DOCUSATE SODIUM 100 MG CAPSULE PO SCH ×2 (09:00→20:14)
[2019-01-24] MEDS: METOPROLOL SUCCINATE XL 25 MG TABLET PO SCH (09:00)
[2019-01-24] MEDS: ASPIRIN EC 81 MG TABLET PO SCH (09:00)
[2019-01-24] MEDS: SIMETHICONE CHEW 125 MG TABLET PO SCH ×4 (09:00→20:13)
[2019-01-24] MEDS: CITALOPRAM 20 MG TABLET PO SCH (09:00)
[2019-01-24] MEDS: POTASSIUM CHLORIDE 10 MEQ TABLET PO SCH (09:00)
[2019-01-24] MEDS: BUDESONIDE/FORMOTEROL 160-4.5 INHALER 6 GM INH SCH ×2 (09:01→21:49)
[2019-01-24 10:44] LABS: ABG Base Excess 5.4 MMOL/L (-2.5-2.5); ABG Oxygen Saturation 85.8 % (95-100); ABG PH 7.234 (7.35-7.45); ABG PO2 51.8 MM HG (80-95); ABG TCO2 33.2 MMOL/L (23-27); Allen Test Positive
[2019-01-24 10:46] LABS: ABG PCO2 85.3 MM HG (35-48)
[2019-01-24] MEDS: CLORAZEPATE 3.75 MG TABLET PO PRN ×3 (11:17→20:13)
[2019-01-24 13:06] LABS: ABG Base Excess 5.7 MMOL/L (-2.5-2.5); ABG HCO3 29.4 MMOL/L (20-26); ABG Oxygen Saturation 86.8 % (95-100); ABG PH 7.232 (7.35-7.45); ABG PO2 53.7 MM HG (80-95); ABG TCO2 33.7 MMOL/L (23-27); Allen Test Positive
[2019-01-24 13:31] LABS: ABG PCO2 87.1 MM HG (35-48)
[2019-01-24] MEDS: POLYETHYLENE GLYCOL POWDER 17 GM PACK PO SCH (13:52)
[2019-01-24 15:14] LABS: ABG Base Excess 5.7 MMOL/L (-2.5-2.5); ABG HCO3 29.5 MMOL/L (20-26); ABG Oxygen Saturation 91.9 % (95-100); ABG PH 7.223 (7.35-7.45); ABG PO2 65.6 MM HG (80-95); ABG TCO2 33.9 MMOL/L (23-27); Allen Test Positive; Pt O2 Delivery Device Other
[2019-01-24 15:19] LABS: ABG PCO2 89.2 MM HG (35-48)
[2019-01-24] MEDS: PANTOPRAZOLE 40 MG VIAL IV SCH (18:40)
[2019-01-24] MEDS: ENOXAPARIN 40 MG/0.4 ML SYRINGE SUBCUT SCH (18:43)
[2019-01-24] MEDS: ACETAMINOPHEN 325 MG TABLET PO PRN (20:12)
[2019-01-24] MEDS: THEOPHYLLINE ER 300 MG TABLET PO SCH (20:13)
[2019-01-24] MEDS: MONTELUKAST 10 MG TABLET PO SCH (20:13)
[2019-01-25] MEDS: ALBUTEROL/IPRATROPIUM 3 ML NEB RESP TX SCH ×5 (02:59→19:07)
[2019-01-25 04:58] LABS: ABG Base Excess 8.5 MMOL/L (-2.5-2.5); ABG HCO3 37.3 MMOL/L (20-26); ABG Oxygen Saturation 92.6 % (95-100); ABG PH 7.298 (7.35-7.45); ABG PO2 65.7 MM HG (80-95); ABG TCO2 39.7 MMOL/L (23-27); Allen Test Positive; Pt O2 Delivery Device Other
[2019-01-25 05:00] LABS: ABG PCO2 77.9 MM HG (35-48)
[2019-01-25 05:37] LABS: Calcium 7.9 MG/DL (8.5-10.1); Osmolality,Calculated 281.3 MOS/KG (273-304)
[2019-01-25 05:41] LABS: Basophils % 0.1 % (0.0-0.8); Eosinophils % 0.1 % (0.00-10.9); Hematocrit 35.8 VOL% (35.7-47.0); Hemoglobin 10.1 GM/DL (12.0-16.0); Immature Granulocytes % 1.4 %; Immature Granulocytes Absolute 0.13 #; Lymphocytes # 0.8 10*3/uL (1.4-4.0); Lymphocytes % 8.8 % (21.3-54.2); Mean Corpuscular HGB Conc 28.2 GM/DL (32-36); Mean Corpuscular Volume 103.2 FL (87-102); Monocytes % 8.9 % (1.7-12.7); NRBC # 0.03 10*3/uL; Neutrophils % 80.7 % (38.7-73.9); Platelet Count 319 T/CUMM (130-400); Red Blood Count 3.47 MC/CUMM (3.8-5.5); Red Cell Distribution Width 14.8 % (9.3-17.3); White Blood Count 9.2 T/CUMM (4-12)
[2019-01-25] MEDS: CEFEPIME 1,000 MG in SYRINGE 1 EACH IV SCH ×2 (06:18→18:36)
[2019-01-25] MEDS: methylPREDNISolone SOD SUC 125 MG/2 ML VIAL IV SCH ×2 (06:18→18:35)
[2019-01-25 06:37] LABS: ABG PCO2 86.4 MM HG (35-48)
[2019-01-25 06:39] LABS: Anisocytosis Slight; Microcytosis Slight
[2019-01-25 06:40] LABS: Polychromasia Slight; Stomatocytes Few
[2019-01-25 06:41] LABS: Platelet Estimate Normal
[2019-01-25] MEDS: METOPROLOL SUCCINATE XL 25 MG TABLET PO SCH (08:56)
[2019-01-25] MEDS: POLYETHYLENE GLYCOL POWDER 17 GM PACK PO SCH (08:56)
[2019-01-25] MEDS: DOCUSATE SODIUM 100 MG CAPSULE PO SCH ×2 (08:56→21:35)
[2019-01-25] MEDS: CITALOPRAM 20 MG TABLET PO SCH (08:56)
[2019-01-25] MEDS: POTASSIUM CHLORIDE 10 MEQ TABLET PO SCH (08:56)
[2019-01-25] MEDS: ASPIRIN EC 81 MG TABLET PO SCH (08:57)
[2019-01-25] MEDS: SIMETHICONE CHEW 125 MG TABLET PO SCH ×4 (08:57→21:35)
[2019-01-25] MEDS: amLODIPine 2.5 MG TABLET PO SCH (08:58)
[2019-01-25] MEDS: BUDESONIDE/FORMOTEROL 160-4.5 INHALER 6 GM INH SCH ×2 (09:00→21:35)
[2019-01-25] MEDS: CLORAZEPATE 3.75 MG TABLET PO PRN ×2 (12:11→18:34)
[2019-01-25] MEDS: ENOXAPARIN 40 MG/0.4 ML SYRINGE SUBCUT SCH (18:36)
[2019-01-25] MEDS: PANTOPRAZOLE 40 MG VIAL IV SCH (18:39)
[2019-01-25] MEDS: THEOPHYLLINE ER 300 MG TABLET PO SCH (21:35)
[2019-01-25] MEDS: MONTELUKAST 10 MG TABLET PO SCH (21:35)
[2019-01-26] MEDS: ALBUTEROL/IPRATROPIUM 3 ML NEB RESP TX SCH ×7 (00:30→23:40)
[2019-01-26 04:21] LABS: ABG Base Excess 9.5 MMOL/L (-2.5-2.5); ABG Oxygen Saturation 88.4 % (95-100); ABG PH 7.322 (7.35-7.45); ABG PO2 56.3 MM HG (80-95); Allen Test Positive; Pt O2 Delivery Device Other
[2019-01-26 04:38] LABS: ABG PCO2 74.2 MM HG (35-48)
[2019-01-26 05:27] LABS: Calcium 7.6 MG/DL (8.5-10.1); Osmolality,Calculated 284.1 MOS/KG (273-304)
[2019-01-26 05:44] LABS: Basophils % 0.1 % (0.0-0.8); Eosinophils % 0.2 % (0.00-10.9); Immature Granulocytes % 1.6 %; Immature Granulocytes Absolute 0.16 #; Lymphocytes # 1.1 10*3/uL (1.4-4.0); Lymphocytes % 11.5 % (21.3-54.2); Mean Corpuscular HGB Conc 28.6 GM/DL (32-36); Monocytes % 8.5 % (1.7-12.7); NRBC # 0.03 10*3/uL; Neutrophils % 78.1 % (38.7-73.9); Platelet Count 349 T/CUMM (130-400); Red Cell Distribution Width 14.7 % (9.3-17.3); White Blood Count 9.7 T/CUMM (4-12)
[2019-01-26] MEDS: methylPREDNISolone SOD SUC 125 MG/2 ML VIAL IV SCH ×2 (07:03→18:22)
[2019-01-26] MEDS: CEFEPIME 1,000 MG in SYRINGE 1 EACH IV SCH ×2 (07:04→18:16)
[2019-01-26] MEDS: BUDESONIDE/FORMOTEROL 160-4.5 INHALER 6 GM INH SCH ×2 (09:18→21:22)
[2019-01-26] MEDS: DOCUSATE SODIUM 100 MG CAPSULE PO SCH ×2 (09:18→21:22)
[2019-01-26] MEDS: POLYETHYLENE GLYCOL POWDER 17 GM PACK PO SCH (09:18)
[2019-01-26] MEDS: ASPIRIN EC 81 MG TABLET PO SCH (09:18)
[2019-01-26] MEDS: METOPROLOL SUCCINATE XL 25 MG TABLET PO SCH (09:18)
[2019-01-26] MEDS: CITALOPRAM 20 MG TABLET PO SCH (09:18)
[2019-01-26] MEDS: SIMETHICONE CHEW 125 MG TABLET PO SCH ×4 (09:18→21:22)
[2019-01-26] MEDS: POTASSIUM CHLORIDE 10 MEQ TABLET PO SCH (09:18)
[2019-01-26] MEDS: amLODIPine 2.5 MG TABLET PO SCH (09:19)
[2019-01-26] MEDS: CLORAZEPATE 3.75 MG TABLET PO PRN (13:24)
[2019-01-26] MEDS: ENOXAPARIN 40 MG/0.4 ML SYRINGE SUBCUT SCH (18:11)
[2019-01-26] MEDS: PANTOPRAZOLE 40 MG VIAL IV SCH (18:21)
[2019-01-26] MEDS: ACETAMINOPHEN 325 MG TABLET PO PRN (18:23)
[2019-01-26] MEDS: THEOPHYLLINE ER 300 MG TABLET PO SCH (21:22)
[2019-01-26] MEDS: MONTELUKAST 10 MG TABLET PO SCH (21:22)
[2019-01-27] MEDS: ALBUTEROL/IPRATROPIUM 3 ML NEB RESP TX SCH ×5 (02:15→19:28)
[2019-01-27 04:38] LABS: ABG Base Excess 10.7 MMOL/L (-2.5-2.5); ABG HCO3 38.4 MMOL/L (20-26); ABG Oxygen Saturation 92.3 % (95-100); ABG PCO2 68.7 MM HG (35-48); ABG PH 7.365 (7.35-7.45); ABG PO2 66.8 MM HG (80-95); ABG TCO2 40.5 MMOL/L (23-27); Allen Test Positive; Pt O2 Delivery Device Other
[2019-01-27 06:33] LABS: Basophils % 0.1 % (0.0-0.8); Eosinophils % 0.1 % (0.00-10.9); Hematocrit 36.2 VOL% (35.7-47.0); Immature Granulocytes % 1.4 %; Immature Granulocytes Absolute 0.15 #; Lymphocytes # 1.3 10*3/uL (1.4-4.0); Lymphocytes % 11.8 % (21.3-54.2); Mean Corpuscular HGB Conc 29.3 GM/DL (32-36); Mean Corpuscular Volume 97.6 FL (87-102); Mean Platelet Volume 9.9 FL (9.6-12.0); Monocytes % 7.3 % (1.7-12.7); NRBC # 0.02 10*3/uL; Neutrophils % 79.3 % (38.7-73.9); Platelet Count 394 T/CUMM (130-400); Red Blood Count 3.71 MC/CUMM (3.8-5.5); Red Cell Distribution Width 14.8 % (9.3-17.3); White Blood Count 11.1 T/CUMM (4-12)
[2019-01-27 06:36] LABS: Hemoglobin 10.7 GM/DL (12.0-16.0)
[2019-01-27 06:37] LABS: Calcium 8.2 MG/DL (8.5-10.1); Osmolality,Calculated 282.3 MOS/KG (273-304)
[2019-01-27] MEDS: methylPREDNISolone SOD SUC 125 MG/2 ML VIAL IV SCH ×2 (06:52→18:54)
[2019-01-27] MEDS: CLORAZEPATE 3.75 MG TABLET PO PRN ×3 (07:02→21:44)
[2019-01-27] MEDS: SIMETHICONE CHEW 125 MG TABLET PO SCH ×4 (08:49→21:44)
[2019-01-27] MEDS: CITALOPRAM 20 MG TABLET PO SCH (08:49)
[2019-01-27] MEDS: amLODIPine 2.5 MG TABLET PO SCH (08:50)
[2019-01-27] MEDS: METOPROLOL SUCCINATE XL 25 MG TABLET PO SCH (08:50)
[2019-01-27] MEDS: ASPIRIN EC 81 MG TABLET PO SCH (08:50)
[2019-01-27] MEDS: POTASSIUM CHLORIDE 10 MEQ TABLET PO SCH (08:50)
[2019-01-27] MEDS: POLYETHYLENE GLYCOL POWDER 17 GM PACK PO SCH (08:50)
[2019-01-27] MEDS: DOCUSATE SODIUM 100 MG CAPSULE PO SCH ×2 (08:50→21:44)
[2019-01-27] MEDS: BUDESONIDE/FORMOTEROL 160-4.5 INHALER 6 GM INH SCH ×2 (08:51→21:44)
[2019-01-27] MEDS: PANTOPRAZOLE 40 MG VIAL IV SCH (18:30)
[2019-01-27] MEDS: ENOXAPARIN 40 MG/0.4 ML SYRINGE SUBCUT SCH (18:44)
[2019-01-27] MEDS: methylPREDNISolone SOD SUC 40 MG/1 ML VIAL IV SCH (18:45)
[2019-01-27] MEDS: THEOPHYLLINE ER 300 MG TABLET PO SCH (21:43)
[2019-01-27] MEDS: MONTELUKAST 10 MG TABLET PO SCH (21:44)
[2019-01-28] MEDS: ALBUTEROL/IPRATROPIUM 3 ML NEB RESP TX SCH ×7 (00:39→23:46)
[2019-01-28 03:13] LABS: ABG Base Excess 8.2 MMOL/L (-2.5-2.5); ABG HCO3 37.2 MMOL/L (20-26); ABG Oxygen Saturation 94.4 % (95-100); ABG PH 7.292 (7.35-7.45); ABG PO2 79.8 MM HG (80-95); ABG TCO2 39.6 MMOL/L (23-27); Allen Test Positive; Pt O2 Delivery Device Other
[2019-01-28 03:15] LABS: ABG PCO2 78.7 MM HG (35-48)
[2019-01-28 04:50] LABS: Calcium 8.1 MG/DL (8.5-10.1); Osmolality,Calculated 288.1 MOS/KG (273-304)
[2019-01-28 05:36] LABS: Anisocytosis 1+; Microcytosis Slight
[2019-01-28 05:37] LABS: Macrocytosis Slight; Ovalocytes Slight; Stomatocytes Few
[2019-01-28 05:38] LABS: Polychromasia Slight
[2019-01-28] MEDS: methylPREDNISolone SOD SUC 40 MG/1 ML VIAL IV SCH ×2 (06:22→19:38)
[2019-01-28 07:09] LABS: Basophils % 0.2 % (0.0-0.8); Eosinophils % 0.2 % (0.00-10.9); Hematocrit 37.9 VOL% (35.7-47.0); Hemoglobin 10.6 GM/DL (12.0-16.0); Immature Granulocytes % 2.4 %; Immature Granulocytes Absolute 0.29 #; Lymphocytes % 7.8 % (21.3-54.2); Mean Corpuscular Volume 101.6 FL (87-102); Mean Platelet Volume 9.9 FL (9.6-12.0); Monocytes % 7.3 % (1.7-12.7); Neutrophils % 82.1 % (38.7-73.9); Platelet Count 416 T/CUMM (130-400); Red Blood Count 3.73 MC/CUMM (3.8-5.5); Red Cell Distribution Width 15.1 % (9.3-17.3); White Blood Count 12.2 T/CUMM (4-12)
[2019-01-28] MEDS ORDERED: NON-FORMULARY MEDICATION (Alendronate Sodium [Alendronate Sodium] 70 MG) PO SCH (09:00)
[2019-01-28] MEDS: POLYETHYLENE GLYCOL POWDER 17 GM PACK PO SCH (09:13)
[2019-01-28] MEDS: CITALOPRAM 20 MG TABLET PO SCH (09:49)
[2019-01-28] MEDS: METOPROLOL SUCCINATE XL 25 MG TABLET PO SCH (09:50)
[2019-01-28] MEDS: SIMETHICONE CHEW 125 MG TABLET PO SCH ×4 (09:50→21:38)
[2019-01-28] MEDS: amLODIPine 2.5 MG TABLET PO SCH (09:50)
[2019-01-28] MEDS: DOCUSATE SODIUM 100 MG CAPSULE PO SCH ×2 (09:50→21:37)
[2019-01-28] MEDS: POTASSIUM CHLORIDE 10 MEQ TABLET PO SCH (09:51)
[2019-01-28] MEDS: ASPIRIN EC 81 MG TABLET PO SCH (09:51)
[2019-01-28] MEDS: BUDESONIDE/FORMOTEROL 160-4.5 INHALER 6 GM INH SCH ×2 (13:57→21:37)
[2019-01-28] MEDS: THEOPHYLLINE ER 300 MG TABLET PO SCH (21:37)
[2019-01-28] MEDS: MONTELUKAST 10 MG TABLET PO SCH (21:37)
[2019-01-28] MEDS: ENOXAPARIN 40 MG/0.4 ML SYRINGE SUBCUT SCH (21:43)
[2019-01-28] MEDS: CLORAZEPATE 3.75 MG TABLET PO PRN (21:49)
[2019-01-29] MEDS: ALBUTEROL/IPRATROPIUM 3 ML NEB RESP TX SCH ×7 (02:05→22:58)
[2019-01-29 03:29] LABS: ABG Base Excess 8.3 MMOL/L (-2.5-2.5); ABG HCO3 31.8 MMOL/L (20-26); ABG Oxygen Saturation 86.8 % (95-100); ABG PH 7.303 (7.35-7.45); ABG PO2 57.3 MM HG (80-95); ABG TCO2 34.2 MMOL/L (23-27); Allen Test Positive; Pt O2 Delivery Device Other
[2019-01-29 03:32] LABS: ABG PCO2 75.8 MM HG (35-48)
[2019-01-29 05:53] LABS: Calcium 7.8 MG/DL (8.5-10.1)
[2019-01-29 06:03] LABS: Basophils % 0.3 % (0.0-0.8); Eosinophils % 0.1 % (0.00-10.9); Hematocrit 37.6 VOL% (35.7-47.0); Hemoglobin 10.5 GM/DL (12.0-16.0); Immature Granulocytes % 2.2 %; Immature Granulocytes Absolute 0.24 #; Lymphocytes # 0.9 10*3/uL (1.4-4.0); Lymphocytes % 7.7 % (21.3-54.2); Mean Corpuscular HGB Conc 27.9 GM/DL (32-36); Mean Corpuscular Volume 102.2 FL (87-102); Mean Platelet Volume 9.7 FL (9.6-12.0); Neutrophils % 85.7 % (38.7-73.9); Platelet Count 441 T/CUMM (130-400); Red Blood Count 3.68 MC/CUMM (3.8-5.5); White Blood Count 11.1 T/CUMM (4-12)
[2019-01-29] MEDS: methylPREDNISolone SOD SUC 40 MG/1 ML VIAL IV SCH ×2 (06:11→17:33)
[2019-01-29] MEDS: CLORAZEPATE 3.75 MG TABLET PO PRN ×3 (06:15→21:43)
[2019-01-29] MEDS: CITALOPRAM 20 MG TABLET PO SCH (09:29)
[2019-01-29] MEDS: POLYETHYLENE GLYCOL POWDER 17 GM PACK PO SCH (09:29)
[2019-01-29] MEDS: POTASSIUM CHLORIDE 10 MEQ TABLET PO SCH (09:29)
[2019-01-29] MEDS: ASPIRIN EC 81 MG TABLET PO SCH (09:29)
[2019-01-29] MEDS: amLODIPine 2.5 MG TABLET PO SCH (09:29)
[2019-01-29] MEDS: PANTOPRAZOLE 40 MG TABLET PO SCH (09:29)
[2019-01-29] MEDS: DOCUSATE SODIUM 100 MG CAPSULE PO SCH ×2 (09:30→21:42)
[2019-01-29] MEDS: METOPROLOL SUCCINATE XL 25 MG TABLET PO SCH (09:30)
[2019-01-29] MEDS: SIMETHICONE CHEW 125 MG TABLET PO SCH ×5 (10:21→21:42)
[2019-01-29] MEDS: BUDESONIDE/FORMOTEROL 160-4.5 INHALER 6 GM INH SCH ×2 (10:36→21:44)
[2019-01-29] MEDS: ENOXAPARIN 40 MG/0.4 ML SYRINGE SUBCUT SCH (17:33)
[2019-01-29] MEDS: MONTELUKAST 10 MG TABLET PO SCH (21:42)
[2019-01-29] MEDS: ACETAMINOPHEN 325 MG TABLET PO PRN (21:43)
[2019-01-29] MEDS: THEOPHYLLINE ER 300 MG TABLET PO SCH (21:43)
[2019-01-30] MEDS: ALBUTEROL/IPRATROPIUM 3 ML NEB RESP TX SCH ×6 (02:57→22:56)
[2019-01-30 05:09] LABS: Osmolality,Calculated 291.7 MOS/KG (273-304)
[2019-01-30] MEDS: methylPREDNISolone SOD SUC 40 MG/1 ML VIAL IV SCH ×2 (05:48→18:02)
[2019-01-30 05:49] LABS: Basophils % 0.3 % (0.0-0.8); Eosinophils % 0.2 % (0.00-10.9); Hematocrit 37.7 VOL% (35.7-47.0); Hemoglobin 10.5 GM/DL (12.0-16.0); Immature Granulocytes % 2.2 %; Immature Granulocytes Absolute 0.31 #; Lymphocytes # 1.5 10*3/uL (1.4-4.0); Mean Corpuscular HGB Conc 27.9 GM/DL (32-36); Mean Corpuscular Volume 101.1 FL (87-102); Mean Platelet Volume 9.9 FL (9.6-12.0); Monocytes % 6.6 % (1.7-12.7); Neutrophils % 79.7 % (38.7-73.9); Platelet Count 436 T/CUMM (130-400); Red Blood Count 3.73 MC/CUMM (3.8-5.5); Red Cell Distribution Width 15.2 % (9.3-17.3); White Blood Count 13.9 T/CUMM (4-12)
[2019-01-30] MEDS: CLORAZEPATE 3.75 MG TABLET PO PRN ×3 (05:49→20:58)
[2019-01-30 05:55] LABS: Hypochromasia 1+; Macrocytosis 1+
[2019-01-30 05:56] LABS: Platelet Estimate Increased
[2019-01-30] MEDS: POLYETHYLENE GLYCOL POWDER 17 GM PACK PO SCH (09:40)
[2019-01-30] MEDS: PANTOPRAZOLE 40 MG TABLET PO SCH (09:41)
[2019-01-30] MEDS: amLODIPine 2.5 MG TABLET PO SCH (09:41)
[2019-01-30] MEDS: METOPROLOL SUCCINATE XL 25 MG TABLET PO SCH (09:41)
[2019-01-30] MEDS: CITALOPRAM 20 MG TABLET PO SCH (09:41)
[2019-01-30] MEDS: DOCUSATE SODIUM 100 MG CAPSULE PO SCH ×2 (09:41→20:58)
[2019-01-30] MEDS: POTASSIUM CHLORIDE 10 MEQ TABLET PO SCH (09:41)
[2019-01-30] MEDS: BUDESONIDE/FORMOTEROL 160-4.5 INHALER 6 GM INH SCH ×2 (09:42→21:00)
[2019-01-30] MEDS: SIMETHICONE CHEW 125 MG TABLET PO SCH ×4 (09:43→20:58)
[2019-01-30] MEDS: ASPIRIN EC 81 MG TABLET PO SCH (09:47)
[2019-01-30 09:57] LABS: ABG Base Excess 5.7 MMOL/L (-2.5-2.5); ABG HCO3 29.3 MMOL/L (20-26); ABG Oxygen Saturation 85.4 % (95-100); ABG PH 7.282 (7.35-7.45); ABG PO2 55.4 MM HG (80-95); Allen Test Positive; Pt O2 Delivery Device Other
[2019-01-30 10:00] LABS: ABG PCO2 74.7 MM HG (35-48)
[2019-01-30 13:00] LABS: ABG Base Excess 5.7 MMOL/L (-2.5-2.5); ABG HCO3 29.6 MMOL/L (20-26); ABG TCO2 32.9 MMOL/L (23-27)
[2019-01-30 13:03] LABS: ABG PCO2 82.1 MM HG (35-48)
[2019-01-30 14:45] LABS: ABG Base Excess 6.5 MMOL/L (-2.5-2.5); ABG HCO3 29.6 MMOL/L (20-26); ABG Oxygen Saturation 63.7 % (95-100); ABG PCO2 71.6 MM HG (35-48); ABG PH 7.304 (7.35-7.45); ABG TCO2 32.3 MMOL/L (23-27)
[2019-01-30 14:48] LABS: ABG PO2 36.2 MM HG (80-95)
[2019-01-30 16:19] LABS: ABG Base Excess 8.5 MMOL/L (-2.5-2.5); ABG HCO3 37.8 MMOL/L (20-26); ABG Oxygen Saturation 73.3 % (95-100); ABG PH 7.289 (7.35-7.45); ABG PO2 43.5 MM HG (80-95); ABG TCO2 40.2 MMOL/L (23-27)
[2019-01-30 16:21] LABS: ABG PCO2 80.5 MM HG (35-48)
[2019-01-30] MEDS: ENOXAPARIN 40 MG/0.4 ML SYRINGE SUBCUT SCH (18:02)
[2019-01-30] MEDS: THEOPHYLLINE ER 300 MG TABLET PO SCH (20:58)
[2019-01-30] MEDS: ACETAMINOPHEN 325 MG TABLET PO PRN (20:58)
[2019-01-30] MEDS: MONTELUKAST 10 MG TABLET PO SCH (20:58)
[2019-01-31] MEDS: ALBUTEROL/IPRATROPIUM 3 ML NEB RESP TX SCH ×5 (03:44→19:48)
[2019-01-31 04:35] LABS: Allen Test Positive; Pt O2 Delivery Device Other
[2019-01-31 04:37] LABS: ABG Base Excess 9.6 MMOL/L (-2.5-2.5); ABG HCO3 33.2 MMOL/L (20-26); ABG Oxygen Saturation 91.7 % (95-100); ABG PCO2 62.3 MM HG (35-48); ABG PO2 56.9 MM HG (80-95); ABG TCO2 33.6 MMOL/L (23-27)
[2019-01-31 06:11] LABS: Basophils % 0.1 % (0.0-0.8); Eosinophils % 0.1 % (0.00-10.9); Monocytes % 7.1 % (1.7-12.7); Red Blood Count 3.56 MC/CUMM (3.8-5.5); Red Cell Distribution Width 15.2 % (9.3-17.3)
[2019-01-31] MEDS: methylPREDNISolone SOD SUC 40 MG/1 ML VIAL IV SCH ×2 (06:15→18:16)
[2019-01-31] MEDS: CLORAZEPATE 3.75 MG TABLET PO PRN ×2 (06:16→11:18)
[2019-01-31 06:36] LABS: Hematocrit 36.5 VOL% (35.7-47.0); Immature Granulocytes % 1.9 %; Immature Granulocytes Absolute 0.27 #; Lymphocytes # 1.4 10*3/uL (1.4-4.0); Lymphocytes % 10.1 % (21.3-54.2); Mean Corpuscular HGB Conc 27.9 GM/DL (32-36); Mean Corpuscular Volume 102.5 FL (87-102); Mean Platelet Volume 9.5 FL (9.6-12.0); Neutrophils % 80.7 % (38.7-73.9); Platelet Count 406 T/CUMM (130-400); White Blood Count 14.3 T/CUMM (4-12)
[2019-01-31 06:39] LABS: Calcium 8.1 MG/DL (8.5-10.1); Hemoglobin 10.2 GM/DL (12.0-16.0)
[2019-01-31 06:56] LABS: Hypochromasia Slight; Platelet Estimate Normal
[2019-01-31] MEDS: POLYETHYLENE GLYCOL POWDER 17 GM PACK PO SCH (08:09)
[2019-01-31] MEDS: SIMETHICONE CHEW 125 MG TABLET PO SCH ×4 (08:09→21:30)
[2019-01-31] MEDS: CITALOPRAM 20 MG TABLET PO SCH (08:09)
[2019-01-31] MEDS: ASPIRIN EC 81 MG TABLET PO SCH (08:10)
[2019-01-31] MEDS: POTASSIUM CHLORIDE 10 MEQ TABLET PO SCH (08:10)
[2019-01-31] MEDS: amLODIPine 2.5 MG TABLET PO SCH (08:10)
[2019-01-31] MEDS: DOCUSATE SODIUM 100 MG CAPSULE PO SCH ×2 (08:10→21:30)
[2019-01-31] MEDS: METOPROLOL SUCCINATE XL 25 MG TABLET PO SCH (08:10)
[2019-01-31] MEDS: PANTOPRAZOLE 40 MG TABLET PO SCH (08:10)
[2019-01-31] MEDS: BUDESONIDE/FORMOTEROL 160-4.5 INHALER 6 GM INH SCH ×2 (08:10→21:31)
[2019-01-31] MEDS: ENOXAPARIN 40 MG/0.4 ML SYRINGE SUBCUT SCH (18:16)
[2019-01-31] MEDS: MONTELUKAST 10 MG TABLET PO SCH (21:30)
[2019-01-31] MEDS: THEOPHYLLINE ER 300 MG TABLET PO SCH (21:30)
[2019-02-01] MEDS: ALBUTEROL/IPRATROPIUM 3 ML NEB RESP TX SCH ×7 (00:12→22:30)
[2019-02-01 05:51] LABS: Osmolality,Calculated 283.1 MOS/KG (273-304)
[2019-02-01] MEDS: CLORAZEPATE 3.75 MG TABLET PO PRN (05:56)
[2019-02-01] MEDS: methylPREDNISolone SOD SUC 40 MG/1 ML VIAL IV SCH ×2 (05:59→18:12)
[2019-02-01 06:41] LABS: Basophils % 0.3 % (0.0-0.8); Eosinophils % 0.2 % (0.00-10.9); Hematocrit 38.2 VOL% (35.7-47.0); Immature Granulocytes % 1.5 %; Immature Granulocytes Absolute 0.23 #; Lymphocytes # 1.4 10*3/uL (1.4-4.0); Mean Corpuscular HGB Conc 28.3 GM/DL (32-36); Mean Corpuscular Volume 101.6 FL (87-102); Monocytes % 7.7 % (1.7-12.7); Neutrophils % 81.3 % (38.7-73.9); Platelet Count 416 T/CUMM (130-400); Red Blood Count 3.76 MC/CUMM (3.8-5.5); Red Cell Distribution Width 15.1 % (9.3-17.3); White Blood Count 15.4 T/CUMM (4-12)
[2019-02-01 06:42] LABS: Hemoglobin 10.8 GM/DL (12.0-16.0)
[2019-02-01 06:53] LABS: Platelet Estimate Normal; Polychromasia Slight
[2019-02-01] MEDS: amLODIPine 2.5 MG TABLET PO SCH (08:22)
[2019-02-01] MEDS: CITALOPRAM 20 MG TABLET PO SCH (08:22)
[2019-02-01] MEDS: METOPROLOL SUCCINATE XL 25 MG TABLET PO SCH (08:22)
[2019-02-01] MEDS: PANTOPRAZOLE 40 MG TABLET PO SCH (08:23)
[2019-02-01] MEDS: POTASSIUM CHLORIDE 10 MEQ TABLET PO SCH (08:23)
[2019-02-01] MEDS: ASPIRIN EC 81 MG TABLET PO SCH (08:23)
[2019-02-01] MEDS: DOCUSATE SODIUM 100 MG CAPSULE PO SCH ×2 (08:23→21:17)
[2019-02-01] MEDS: POLYETHYLENE GLYCOL POWDER 17 GM PACK PO SCH (08:23)
[2019-02-01] MEDS: SIMETHICONE CHEW 125 MG TABLET PO SCH ×4 (08:23→21:18)
[2019-02-01] MEDS: BUDESONIDE/FORMOTEROL 160-4.5 INHALER 6 GM INH SCH ×2 (08:29→21:18)
[2019-02-01] MEDS ORDERED: FUROSEMIDE 40 MG/4 ML VIAL IV ONE (11:23)
[2019-02-01] MEDS: CLORAZEPATE 3.75 MG TABLET PO SCH ×4 (12:03→21:18)
[2019-02-01] MEDS: ALBUTEROL 2.5 MG/3 ML NEB RESP TX PRN (12:10)
[2019-02-01] MEDS: ENOXAPARIN 40 MG/0.4 ML SYRINGE SUBCUT SCH (18:13)
[2019-02-01] MEDS: THEOPHYLLINE ER 300 MG TABLET PO SCH (21:17)
[2019-02-01] MEDS: MONTELUKAST 10 MG TABLET PO SCH (21:18)
[2019-02-02] MEDS: ALBUTEROL/IPRATROPIUM 3 ML NEB RESP TX SCH ×6 (02:25→23:49)
[2019-02-02 06:04] LABS: Calcium 8.1 MG/DL (8.5-10.1); Osmolality,Calculated 285.8 MOS/KG (273-304)
[2019-02-02] MEDS: methylPREDNISolone SOD SUC 40 MG/1 ML VIAL IV SCH ×2 (06:18→17:29)
[2019-02-02 06:22] LABS: Basophils % 0.2 % (0.0-0.8); Eosinophils % 0.1 % (0.00-10.9); Hemoglobin 10.7 GM/DL (12.0-16.0); Immature Granulocytes Absolute 0.16 #; Lymphocytes # 1.5 10*3/uL (1.4-4.0); Lymphocytes % 9.7 % (21.3-54.2); Mean Corpuscular HGB Conc 28.2 GM/DL (32-36); Mean Corpuscular Volume 101.9 FL (87-102); Mean Platelet Volume 10.1 FL (9.6-12.0); Monocytes % 6.3 % (1.7-12.7); Neutrophils % 82.7 % (38.7-73.9); Platelet Count 383 T/CUMM (130-400); Red Blood Count 3.73 MC/CUMM (3.8-5.5); Red Cell Distribution Width 15.3 % (9.3-17.3); White Blood Count 15.3 T/CUMM (4-12)
[2019-02-02 06:26] LABS: Hypochromasia 1+
[2019-02-02 06:27] LABS: Macrocytosis Slight; Platelet Estimate Normal
[2019-02-02] MEDS: POLYETHYLENE GLYCOL POWDER 17 GM PACK PO SCH (08:47)
[2019-02-02] MEDS: DOCUSATE SODIUM 100 MG CAPSULE PO SCH ×2 (08:47→21:24)
[2019-02-02] MEDS: POTASSIUM CHLORIDE 10 MEQ TABLET PO SCH (08:47)
[2019-02-02] MEDS: PANTOPRAZOLE 40 MG TABLET PO SCH (08:47)
[2019-02-02] MEDS: amLODIPine 2.5 MG TABLET PO SCH (08:47)
[2019-02-02] MEDS: ASPIRIN EC 81 MG TABLET PO SCH (08:47)
[2019-02-02] MEDS: METOPROLOL SUCCINATE XL 25 MG TABLET PO SCH (08:47)
[2019-02-02] MEDS: CLORAZEPATE 3.75 MG TABLET PO SCH ×4 (08:47→21:24)
[2019-02-02] MEDS: BUDESONIDE/FORMOTEROL 160-4.5 INHALER 6 GM INH SCH ×2 (08:47→21:24)
[2019-02-02] MEDS: SIMETHICONE CHEW 125 MG TABLET PO SCH ×4 (08:47→21:24)
[2019-02-02] MEDS: CITALOPRAM 20 MG TABLET PO SCH (08:47)
[2019-02-02] MEDS ORDERED: FUROSEMIDE 40 MG/4 ML VIAL IV ONE (09:26)
[2019-02-02] MEDS: ENOXAPARIN 40 MG/0.4 ML SYRINGE SUBCUT SCH (17:31)
[2019-02-02] MEDS: THEOPHYLLINE ER 300 MG TABLET PO SCH (21:24)
[2019-02-02] MEDS: MONTELUKAST 10 MG TABLET PO SCH (21:24)
[2019-02-03] MEDS: ALBUTEROL/IPRATROPIUM 3 ML NEB RESP TX SCH ×6 (03:26→23:10)
[2019-02-03 03:30] LABS: Allen Test Positive; Pt O2 Delivery Device Other
[2019-02-03 03:31] LABS: ABG Base Excess 13.3 MMOL/L (-2.5-2.5); ABG HCO3 42.2 MMOL/L (20-26); ABG Oxygen Saturation 87.5 % (95-100); ABG PH 7.336 (7.35-7.45); ABG PO2 56.7 MM HG (80-95); ABG TCO2 44.7 MMOL/L (23-27)
[2019-02-03 03:34] LABS: ABG PCO2 80.8 MM HG (35-48)
[2019-02-03] MEDS: methylPREDNISolone SOD SUC 40 MG/1 ML VIAL IV SCH ×2 (06:17→17:59)
[2019-02-03 06:29] LABS: Calcium 8.1 MG/DL (8.5-10.1)
[2019-02-03 06:43] LABS: Basophils % 0.2 % (0.0-0.8); Eosinophils % 0.1 % (0.00-10.9); Hematocrit 38.3 VOL% (35.7-47.0); Immature Granulocytes % 1.1 %; Immature Granulocytes Absolute 0.18 #; Lymphocytes # 1.3 10*3/uL (1.4-4.0); Mean Corpuscular HGB Conc 27.4 GM/DL (32-36); Monocytes % 6.8 % (1.7-12.7); Neutrophils % 83.8 % (38.7-73.9); Platelet Count 372 T/CUMM (130-400); Red Blood Count 3.72 MC/CUMM (3.8-5.5); Red Cell Distribution Width 15.2 % (9.3-17.3); White Blood Count 16.4 T/CUMM (4-12)
[2019-02-03 06:44] LABS: Hemoglobin 10.5 GM/DL (12.0-16.0)
[2019-02-03 07:32] LABS: Hypochromasia 1+; Ovalocytes Slight; Platelet Estimate Adequate
[2019-02-03] MEDS: CLORAZEPATE 3.75 MG TABLET PO SCH ×4 (09:02→21:13)
[2019-02-03] MEDS: POTASSIUM CHLORIDE 10 MEQ TABLET PO SCH (09:02)
[2019-02-03] MEDS: METOPROLOL SUCCINATE XL 25 MG TABLET PO SCH (09:02)
[2019-02-03] MEDS: PANTOPRAZOLE 40 MG TABLET PO SCH (09:02)
[2019-02-03] MEDS: DOCUSATE SODIUM 100 MG CAPSULE PO SCH ×2 (09:02→21:14)
[2019-02-03] MEDS: ASPIRIN EC 81 MG TABLET PO SCH (09:03)
[2019-02-03] MEDS: amLODIPine 2.5 MG TABLET PO SCH (09:03)
[2019-02-03] MEDS: CITALOPRAM 20 MG TABLET PO SCH (09:03)
[2019-02-03] MEDS: SIMETHICONE CHEW 125 MG TABLET PO SCH ×4 (09:03→21:14)
[2019-02-03] MEDS: POLYETHYLENE GLYCOL POWDER 17 GM PACK PO SCH (09:04)
[2019-02-03] MEDS: BUDESONIDE/FORMOTEROL 160-4.5 INHALER 6 GM INH SCH ×2 (09:04→21:14)
[2019-02-03] MEDS: metOLazone 2.5 MG TABLET PO SCH (10:38)
[2019-02-03 11:41] LABS: Amorphous Crystals,Urine Occasional /HPF (Few); Apearance,Urine CLOUDY (Clear); Bilirubin,Urine Negative (Negative); Blood, Urine Small mg/dL (Negative); Glucose,Urine (UA) Negative (Negative); Ketones,Urine Negative (Negative); Mucus,Urine Occasional /LPF (Occasional); Nitrite,Urine Negative (Negative); Protein,Urine Negative; RBC,Urine 20 /HPF (0-4); Squamous Epithelial Cell,Urine Few /HPF (0-10); Urine Color Yellow (Yellow); Urine Specific Gravity 1.014 (1.001-1.035); WBC,Urine 9 /HPF (0-6)
[2019-02-03] MEDS: ENOXAPARIN 40 MG/0.4 ML SYRINGE SUBCUT SCH (17:59)
[2019-02-03] MEDS: ACETAMINOPHEN 325 MG TABLET PO PRN (18:03)
[2019-02-03] MEDS: THEOPHYLLINE ER 300 MG TABLET PO SCH (21:12)
[2019-02-03] MEDS: MONTELUKAST 10 MG TABLET PO SCH (21:13)
[2019-02-04] MEDS: ALBUTEROL/IPRATROPIUM 3 ML NEB RESP TX SCH ×6 (03:10→22:25)
[2019-02-04 04:53] LABS: Calcium 8.3 MG/DL (8.5-10.1); Osmolality,Calculated 285.3 MOS/KG (273-304)
[2019-02-04 05:00] LABS: Basophils % 0.3 % (0.0-0.8); Hematocrit 38.6 VOL% (35.7-47.0); Hemoglobin 10.7 GM/DL (12.0-16.0); Immature Granulocytes % 1.1 %; Immature Granulocytes Absolute 0.17 #; Lymphocytes # 0.9 10*3/uL (1.4-4.0); Lymphocytes % 5.9 % (21.3-54.2); Mean Corpuscular HGB Conc 27.7 GM/DL (32-36); Mean Corpuscular Volume 102.7 FL (87-102); Mean Platelet Volume 9.9 FL (9.6-12.0); Monocytes % 4.7 % (1.7-12.7); Platelet Count 338 T/CUMM (130-400); Red Blood Count 3.76 MC/CUMM (3.8-5.5); Red Cell Distribution Width 15.2 % (9.3-17.3); White Blood Count 15.6 T/CUMM (4-12)
[2019-02-04 05:20] LABS: Hypochromasia Slight; Platelet Estimate Normal; Polychromasia Few
[2019-02-04] MEDS: methylPREDNISolone SOD SUC 40 MG/1 ML VIAL IV SCH ×2 (06:08→17:42)
[2019-02-04] MEDS: CITALOPRAM 20 MG TABLET PO SCH (09:31)
[2019-02-04] MEDS: metOLazone 2.5 MG TABLET PO SCH (09:31)
[2019-02-04] MEDS: POTASSIUM CHLORIDE 10 MEQ TABLET PO SCH (09:32)
[2019-02-04] MEDS: POLYETHYLENE GLYCOL POWDER 17 GM PACK PO SCH (09:32)
[2019-02-04] MEDS: DOCUSATE SODIUM 100 MG CAPSULE PO SCH ×2 (09:32→21:21)
[2019-02-04] MEDS: ASPIRIN EC 81 MG TABLET PO SCH (09:32)
[2019-02-04] MEDS: SIMETHICONE CHEW 125 MG TABLET PO SCH ×4 (09:32→21:21)
[2019-02-04] MEDS: CLORAZEPATE 3.75 MG TABLET PO SCH ×4 (09:32→21:21)
[2019-02-04] MEDS: amLODIPine 2.5 MG TABLET PO SCH (09:32)
[2019-02-04] MEDS: PANTOPRAZOLE 40 MG TABLET PO SCH (09:32)
[2019-02-04] MEDS: METOPROLOL SUCCINATE XL 25 MG TABLET PO SCH (09:32)
[2019-02-04] MEDS: BUDESONIDE/FORMOTEROL 160-4.5 INHALER 6 GM INH SCH ×2 (09:33→21:22)
[2019-02-04] MEDS: ENOXAPARIN 40 MG/0.4 ML SYRINGE SUBCUT SCH (17:41)
[2019-02-04] MEDS: MONTELUKAST 10 MG TABLET PO SCH (21:21)
[2019-02-04] MEDS: acetaZOLAMIDE 250 MG TABLET PO SCH (21:21)
[2019-02-04] MEDS: THEOPHYLLINE ER 300 MG TABLET PO SCH (21:26)
[2019-02-05] MEDS: ACETAMINOPHEN 325 MG TABLET PO PRN ×3 (02:20→22:37)
[2019-02-05] MEDS: ALBUTEROL/IPRATROPIUM 3 ML NEB RESP TX SCH ×6 (03:45→23:04)
[2019-02-05 03:57] LABS: ABG Base Excess 11.2 MMOL/L (-2.5-2.5); ABG HCO3 34.7 MMOL/L (20-26); ABG PH 7.316 (7.35-7.45); ABG PO2 54.6 MM HG (80-95); ABG TCO2 37.1 MMOL/L (23-27); Allen Test Positive; Pt O2 Delivery Device Other
[2019-02-05 04:00] LABS: ABG PCO2 80.2 MM HG (35-48)
[2019-02-05 05:03] LABS: Calcium 8.1 MG/DL (8.5-10.1); Calcium 8.2 MG/DL (8.5-10.1); Osmolality,Calculated 281.3 MOS/KG (273-304)
[2019-02-05 05:33] LABS: Basophils # 0.1 10*3/uL (0.0-0.2); Basophils % 0.2 % (0.0-0.8); Hematocrit 39.3 VOL% (35.7-47.0); Immature Granulocytes % 1.1 %; Immature Granulocytes Absolute 0.29 #; Lymphocytes % 3.9 % (21.3-54.2); Mean Corpuscular Volume 102.1 FL (87-102); Mean Platelet Volume 9.8 FL (9.6-12.0); Monocytes % 6.4 % (1.7-12.7); Neutrophils % 88.4 % (38.7-73.9); Platelet Count 315 T/CUMM (130-400); Red Blood Count 3.85 MC/CUMM (3.8-5.5); Red Cell Distribution Width 15.5 % (9.3-17.3); White Blood Count 26.1 T/CUMM (4-12)
[2019-02-05 05:42] LABS: Lymphocytes 4 % (20-55); Segmented Neutrophils 90 % (50-85); Total Cells Counted 100
[2019-02-05] MEDS: methylPREDNISolone SOD SUC 40 MG/1 ML VIAL IV SCH ×2 (05:42→18:00)
[2019-02-05 05:43] LABS: Hypochromasia 1+; Ovalocytes 1+; Platelet Estimate Normal; Stomatocytes Few
[2019-02-05] MEDS: acetaZOLAMIDE 250 MG TABLET PO SCH ×2 (08:45→20:39)
[2019-02-05] MEDS: METOPROLOL SUCCINATE XL 25 MG TABLET PO SCH (08:45)
[2019-02-05] MEDS: amLODIPine 2.5 MG TABLET PO SCH (08:45)
[2019-02-05] MEDS: DOCUSATE SODIUM 100 MG CAPSULE PO SCH ×2 (08:45→20:38)
[2019-02-05] MEDS: CLORAZEPATE 3.75 MG TABLET PO SCH ×4 (08:45→20:39)
[2019-02-05] MEDS: SIMETHICONE CHEW 125 MG TABLET PO SCH ×4 (08:46→20:38)
[2019-02-05] MEDS: CITALOPRAM 20 MG TABLET PO SCH (08:46)
[2019-02-05] MEDS: metOLazone 2.5 MG TABLET PO SCH (08:46)
[2019-02-05] MEDS: PANTOPRAZOLE 40 MG TABLET PO SCH (08:46)
[2019-02-05] MEDS: ASPIRIN EC 81 MG TABLET PO SCH (08:46)
[2019-02-05] MEDS: BUDESONIDE/FORMOTEROL 160-4.5 INHALER 6 GM INH SCH ×2 (08:47→20:39)
[2019-02-05] MEDS: POTASSIUM CHLORIDE 10 MEQ TABLET PO SCH (08:48)
[2019-02-05] MEDS: POLYETHYLENE GLYCOL POWDER 17 GM PACK PO SCH (08:49)
[2019-02-05] MEDS: CIPROFLOXACIN 250 MG TABLET PO SCH ×2 (11:40→20:38)
[2019-02-05] MEDS: ENOXAPARIN 40 MG/0.4 ML SYRINGE SUBCUT SCH ×2 (18:00→18:16)
[2019-02-05] MEDS: ALBUTEROL 2.5 MG/3 ML NEB RESP TX PRN ×2 (18:15→20:50)
[2019-02-05] MEDS: MONTELUKAST 10 MG TABLET PO SCH (20:38)
[2019-02-05] MEDS: THEOPHYLLINE ER 300 MG TABLET PO SCH (20:39)
[2019-02-06] MEDS: ALBUTEROL/IPRATROPIUM 3 ML NEB RESP TX SCH ×6 (03:03→19:53)
[2019-02-06 05:35] LABS: Calcium 8.4 MG/DL (8.5-10.1); Osmolality,Calculated 280.5 MOS/KG (273-304)
[2019-02-06 05:47] LABS: Hemoglobin 11.2 GM/DL (12.0-16.0); Red Blood Count 3.93 MC/CUMM (3.8-5.5); White Blood Count 27.9 T/CUMM (4-12)
[2019-02-06 05:48] LABS: Basophils # 0.1 10*3/uL (0.0-0.2); Basophils % 0.2 % (0.0-0.8); Immature Granulocytes % 1.4 %; Immature Granulocytes Absolute 0.38 #; Lymphocytes # 0.7 10*3/uL (1.4-4.0); Lymphocytes % 2.6 % (21.3-54.2); Mean Corpuscular HGB Conc 28.7 GM/DL (32-36); Mean Corpuscular Volume 99.2 FL (87-102); Mean Platelet Volume 10.2 FL (9.6-12.0); Monocytes % 4.9 % (1.7-12.7); Neutrophils % 90.9 % (38.7-73.9); Platelet Count 285 T/CUMM (130-400); Red Cell Distribution Width 15.5 % (9.3-17.3)
[2019-02-06] MEDS: methylPREDNISolone SOD SUC 40 MG/1 ML VIAL IV SCH ×2 (05:51→18:51)
[2019-02-06] MEDS: ACETAMINOPHEN 325 MG TABLET PO PRN (05:54)
[2019-02-06 05:56] LABS: Hypochromasia 2+; Lymphocytes 3 % (20-55); Platelet Estimate Normal; Segmented Neutrophils 92 % (50-85); Total Cells Counted 100
[2019-02-06] MEDS ORDERED: POTASSIUM CHLORIDE 20 MEQ TABLET PO ONE (08:00)
[2019-02-06] MEDS: CITALOPRAM 20 MG TABLET PO SCH (09:37)
[2019-02-06] MEDS: SIMETHICONE CHEW 125 MG TABLET PO SCH ×4 (09:38→22:37)
[2019-02-06] MEDS: acetaZOLAMIDE 250 MG TABLET PO SCH ×2 (09:39→21:36)
[2019-02-06] MEDS: PANTOPRAZOLE 40 MG TABLET PO SCH (09:39)
[2019-02-06] MEDS: CLORAZEPATE 3.75 MG TABLET PO SCH ×4 (09:39→21:36)
[2019-02-06] MEDS: metOLazone 2.5 MG TABLET PO SCH (09:39)
[2019-02-06] MEDS: CIPROFLOXACIN 250 MG TABLET PO SCH ×2 (09:39→21:37)
[2019-02-06] MEDS: ASPIRIN EC 81 MG TABLET PO SCH (09:39)
[2019-02-06] MEDS: POTASSIUM CHLORIDE 20 MEQ TABLET PO SCH (09:39)
[2019-02-06] MEDS: amLODIPine 2.5 MG TABLET PO SCH (09:39)
[2019-02-06] MEDS: METOPROLOL SUCCINATE XL 25 MG TABLET PO SCH (09:39)
[2019-02-06] MEDS: DOCUSATE SODIUM 100 MG CAPSULE PO SCH ×2 (09:39→21:37)
[2019-02-06] MEDS: POLYETHYLENE GLYCOL POWDER 17 GM PACK PO SCH (09:41)
[2019-02-06] MEDS: BUDESONIDE/FORMOTEROL 160-4.5 INHALER 6 GM INH SCH ×2 (09:44→21:44)
[2019-02-06] MEDS: ENOXAPARIN 40 MG/0.4 ML SYRINGE SUBCUT SCH (18:50)
[2019-02-06] MEDS: THEOPHYLLINE ER 300 MG TABLET PO SCH (21:37)
[2019-02-06] MEDS: MONTELUKAST 10 MG TABLET PO SCH (21:37)
[2019-02-07] MEDS: ALBUTEROL/IPRATROPIUM 3 ML NEB RESP TX SCH ×6 (02:30→23:12)
[2019-02-07] MEDS: ACETAMINOPHEN 325 MG TABLET PO PRN ×2 (04:28→17:32)
[2019-02-07 05:23] LABS: Calcium 8.4 MG/DL (8.5-10.1); Osmolality,Calculated 276.7 MOS/KG (273-304)
[2019-02-07 05:46] LABS: Basophils % 0.1 % (0.0-0.8); Eosinophils % 0.1 % (0.00-10.9); Hematocrit 39.8 VOL% (35.7-47.0); Immature Granulocytes % 0.9 %; Immature Granulocytes Absolute 0.18 #; Lymphocytes # 1.1 10*3/uL (1.4-4.0); Lymphocytes % 5.9 % (21.3-54.2); Mean Corpuscular HGB Conc 28.9 GM/DL (32-36); Mean Platelet Volume 10.5 FL (9.6-12.0); Monocytes % 5.8 % (1.7-12.7); Neutrophils % 87.2 % (38.7-73.9); Platelet Count 257 T/CUMM (130-400); Red Blood Count 3.94 MC/CUMM (3.8-5.5); Red Cell Distribution Width 15.6 % (9.3-17.3); White Blood Count 19.1 T/CUMM (4-12)
[2019-02-07] MEDS: methylPREDNISolone SOD SUC 40 MG/1 ML VIAL IV SCH ×2 (05:47→17:33)
[2019-02-07 05:48] LABS: Hemoglobin 11.5 GM/DL (12.0-16.0)
[2019-02-07 06:20] LABS: Anisocytosis Slight
[2019-02-07 06:21] LABS: Microcytosis Slight
[2019-02-07 06:22] LABS: Polychromasia Few
[2019-02-07 06:23] LABS: Platelet Estimate Normal
[2019-02-07] MEDS ORDERED: POTASSIUM CHLORIDE 20 MEQ TABLET PO ONE (07:11)
[2019-02-07] MEDS: POLYETHYLENE GLYCOL POWDER 17 GM PACK PO SCH (09:26)
[2019-02-07] MEDS: amLODIPine 2.5 MG TABLET PO SCH (09:27)
[2019-02-07] MEDS: CITALOPRAM 20 MG TABLET PO SCH (09:27)
[2019-02-07] MEDS: METOPROLOL SUCCINATE XL 25 MG TABLET PO SCH (09:27)
[2019-02-07] MEDS: acetaZOLAMIDE 250 MG TABLET PO SCH ×2 (09:27→21:06)
[2019-02-07] MEDS: POTASSIUM CHLORIDE 20 MEQ TABLET PO SCH (09:28)
[2019-02-07] MEDS: metOLazone 2.5 MG TABLET PO SCH (09:28)
[2019-02-07] MEDS: CLORAZEPATE 3.75 MG TABLET PO SCH ×4 (09:29→21:06)
[2019-02-07] MEDS: PANTOPRAZOLE 40 MG TABLET PO SCH (09:29)
[2019-02-07] MEDS: DOCUSATE SODIUM 100 MG CAPSULE PO SCH ×2 (09:29→21:06)
[2019-02-07] MEDS: ASPIRIN EC 81 MG TABLET PO SCH (09:30)
[2019-02-07] MEDS: CIPROFLOXACIN 250 MG TABLET PO SCH ×2 (09:30→21:06)
[2019-02-07] MEDS: BUDESONIDE/FORMOTEROL 160-4.5 INHALER 6 GM INH SCH ×2 (09:31→21:09)
[2019-02-07] MEDS: SIMETHICONE CHEW 125 MG TABLET PO SCH ×4 (09:36→21:08)
[2019-02-07] MEDS: AZITHROMYCIN 250 MG TABLET PO SCH (13:04)
[2019-02-07] MEDS: ENOXAPARIN 40 MG/0.4 ML SYRINGE SUBCUT SCH (17:33)
[2019-02-07] MEDS: MONTELUKAST 10 MG TABLET PO SCH (21:06)
[2019-02-07] MEDS: THEOPHYLLINE ER 300 MG TABLET PO SCH (21:06)
[2019-02-08] MEDS: ALBUTEROL/IPRATROPIUM 3 ML NEB RESP TX SCH ×5 (03:02→20:13)
[2019-02-08] MEDS: methylPREDNISolone SOD SUC 40 MG/1 ML VIAL IV SCH ×2 (06:00→18:33)
[2019-02-08] MEDS: CLORAZEPATE 3.75 MG TABLET PO SCH ×4 (09:48→21:26)
[2019-02-08] MEDS: CITALOPRAM 20 MG TABLET PO SCH (09:48)
[2019-02-08] MEDS: acetaZOLAMIDE 250 MG TABLET PO SCH ×2 (09:48→21:26)
[2019-02-08] MEDS: PANTOPRAZOLE 40 MG TABLET PO SCH (09:48)
[2019-02-08] MEDS: metOLazone 2.5 MG TABLET PO SCH (09:49)
[2019-02-08] MEDS: METOPROLOL SUCCINATE XL 25 MG TABLET PO SCH (09:49)
[2019-02-08] MEDS: POTASSIUM CHLORIDE 20 MEQ TABLET PO SCH (09:49)
[2019-02-08] MEDS: ASPIRIN EC 81 MG TABLET PO SCH (09:50)
[2019-02-08] MEDS: DOCUSATE SODIUM 100 MG CAPSULE PO SCH ×2 (09:50→21:26)
[2019-02-08] MEDS: CIPROFLOXACIN 250 MG TABLET PO SCH ×2 (09:50→21:26)
[2019-02-08] MEDS: amLODIPine 2.5 MG TABLET PO SCH (09:50)
[2019-02-08] MEDS: POLYETHYLENE GLYCOL POWDER 17 GM PACK PO SCH (09:50)
[2019-02-08] MEDS: BUDESONIDE/FORMOTEROL 160-4.5 INHALER 6 GM INH SCH ×2 (09:50→21:27)
[2019-02-08] MEDS: SIMETHICONE CHEW 125 MG TABLET PO SCH ×4 (09:50→21:26)
[2019-02-08] MEDS: ENOXAPARIN 40 MG/0.4 ML SYRINGE SUBCUT SCH (18:33)
[2019-02-08] MEDS: THEOPHYLLINE ER 300 MG TABLET PO SCH (21:26)
[2019-02-08] MEDS: MONTELUKAST 10 MG TABLET PO SCH (21:26)
[2019-02-09] MEDS: ALBUTEROL/IPRATROPIUM 3 ML NEB RESP TX SCH ×7 (00:40→20:06)
[2019-02-09] MEDS: ACETAMINOPHEN 325 MG TABLET PO PRN ×2 (04:59→21:34)
[2019-02-09] MEDS: methylPREDNISolone SOD SUC 40 MG/1 ML VIAL IV SCH (05:01)
[2019-02-09] MEDS: ASPIRIN EC 81 MG TABLET PO SCH (09:33)
[2019-02-09] MEDS: POTASSIUM CHLORIDE 20 MEQ TABLET PO SCH (09:33)
[2019-02-09] MEDS: amLODIPine 2.5 MG TABLET PO SCH (09:34)
[2019-02-09] MEDS: CITALOPRAM 20 MG TABLET PO SCH (09:34)
[2019-02-09] MEDS: METOPROLOL SUCCINATE XL 25 MG TABLET PO SCH (09:34)
[2019-02-09] MEDS: PANTOPRAZOLE 40 MG TABLET PO SCH (09:34)
[2019-02-09] MEDS: metOLazone 2.5 MG TABLET PO SCH (09:34)
[2019-02-09] MEDS: CIPROFLOXACIN 250 MG TABLET PO SCH ×2 (09:34→21:36)
[2019-02-09] MEDS: DOCUSATE SODIUM 100 MG CAPSULE PO SCH ×2 (09:34→21:35)
[2019-02-09] MEDS: POLYETHYLENE GLYCOL POWDER 17 GM PACK PO SCH (09:35)
[2019-02-09] MEDS: BUDESONIDE/FORMOTEROL 160-4.5 INHALER 6 GM INH SCH ×2 (09:36→21:36)
[2019-02-09] MEDS: SIMETHICONE CHEW 125 MG TABLET PO SCH ×4 (09:37→21:34)
[2019-02-09] MEDS: acetaZOLAMIDE 250 MG TABLET PO SCH ×2 (09:38→21:34)
[2019-02-09] MEDS: CLORAZEPATE 3.75 MG TABLET PO SCH ×3 (12:05→21:35)
[2019-02-09] MEDS: predniSONE 20 MG TABLET PO SCH ×2 (12:05→21:35)
[2019-02-09] MEDS: ENOXAPARIN 40 MG/0.4 ML SYRINGE SUBCUT SCH (17:35)
[2019-02-09] MEDS: MONTELUKAST 10 MG TABLET PO SCH (21:35)
[2019-02-09] MEDS: THEOPHYLLINE ER 300 MG TABLET PO SCH (21:35)
[2019-02-10] MEDS: ALBUTEROL/IPRATROPIUM 3 ML NEB RESP TX SCH ×7 (01:01→22:39)
[2019-02-10] MEDS ORDERED: predniSONE 10 MG TABLET ONE (09:05)
[2019-02-10] MEDS: CITALOPRAM 20 MG TABLET PO SCH (09:10)
[2019-02-10] MEDS: metOLazone 2.5 MG TABLET PO SCH (09:10)
[2019-02-10] MEDS: METOPROLOL SUCCINATE XL 25 MG TABLET PO SCH (09:11)
[2019-02-10] MEDS: DOCUSATE SODIUM 100 MG CAPSULE PO SCH ×2 (09:11→21:36)
[2019-02-10] MEDS: CLORAZEPATE 3.75 MG TABLET PO SCH ×4 (09:11→21:36)
[2019-02-10] MEDS: amLODIPine 2.5 MG TABLET PO SCH (09:11)
[2019-02-10] MEDS: POTASSIUM CHLORIDE 20 MEQ TABLET PO SCH (09:12)
[2019-02-10] MEDS: ASPIRIN EC 81 MG TABLET PO SCH (09:12)
[2019-02-10] MEDS: AZITHROMYCIN 250 MG TABLET PO SCH ×2 (09:12→12:41)
[2019-02-10] MEDS: SIMETHICONE CHEW 125 MG TABLET PO SCH ×5 (09:12→21:36)
[2019-02-10] MEDS: POLYETHYLENE GLYCOL POWDER 17 GM PACK PO SCH (09:13)
[2019-02-10] MEDS: predniSONE 20 MG TABLET PO SCH ×2 (09:13→21:36)
[2019-02-10] MEDS: PANTOPRAZOLE 40 MG TABLET PO SCH (11:42)
[2019-02-10] MEDS: BUDESONIDE/FORMOTEROL 160-4.5 INHALER 6 GM INH SCH ×2 (11:43→21:36)
[2019-02-10] MEDS: acetaZOLAMIDE 250 MG TABLET PO SCH ×2 (11:58→21:36)
[2019-02-10] MEDS: ENOXAPARIN 40 MG/0.4 ML SYRINGE SUBCUT SCH (18:05)
[2019-02-10] MEDS: ACETAMINOPHEN 325 MG TABLET PO PRN (18:12)
[2019-02-10] MEDS: MONTELUKAST 10 MG TABLET PO SCH (21:36)
[2019-02-10] MEDS: THEOPHYLLINE ER 300 MG TABLET PO SCH (21:36)
[2019-02-11] MEDS: ALBUTEROL/IPRATROPIUM 3 ML NEB RESP TX SCH ×5 (02:40→20:55)
[2019-02-11] MEDS: CITALOPRAM 20 MG TABLET PO SCH (10:20)
[2019-02-11] MEDS: PANTOPRAZOLE 40 MG TABLET PO SCH (10:20)
[2019-02-11] MEDS: POTASSIUM CHLORIDE 20 MEQ TABLET PO SCH (10:20)
[2019-02-11] MEDS: amLODIPine 2.5 MG TABLET PO SCH (10:20)
[2019-02-11] MEDS: CLORAZEPATE 3.75 MG TABLET PO SCH ×4 (10:20→23:13)
[2019-02-11] MEDS: METOPROLOL SUCCINATE XL 25 MG TABLET PO SCH (10:20)
[2019-02-11] MEDS: DOCUSATE SODIUM 100 MG CAPSULE PO SCH ×2 (10:20→21:13)
[2019-02-11] MEDS: ASPIRIN EC 81 MG TABLET PO SCH (10:21)
[2019-02-11] MEDS: SIMETHICONE CHEW 125 MG TABLET PO SCH ×4 (10:21→21:24)
[2019-02-11] MEDS: metOLazone 2.5 MG TABLET PO SCH (10:21)
[2019-02-11] MEDS: predniSONE 20 MG TABLET PO SCH ×2 (10:21→21:13)
[2019-02-11] MEDS: acetaZOLAMIDE 250 MG TABLET PO SCH ×2 (10:21→21:24)
[2019-02-11] MEDS: POLYETHYLENE GLYCOL POWDER 17 GM PACK PO SCH (10:22)
[2019-02-11] MEDS: BUDESONIDE/FORMOTEROL 160-4.5 INHALER 6 GM INH SCH ×2 (10:22→21:25)
[2019-02-11] MEDS: ENOXAPARIN 40 MG/0.4 ML SYRINGE SUBCUT SCH (19:19)
[2019-02-11 21:02] LABS: ABG HCO3 36.6 MMOL/L (20-26); ABG Oxygen Saturation 89.8 % (95-100); ABG PH 7.305 (7.35-7.45); ABG PO2 63.6 MM HG (80-95); ABG TCO2 39.5 MMOL/L (23-27)
[2019-02-11 21:09] LABS: ABG PCO2 87.1 MM HG (35-48)
[2019-02-11] MEDS: THEOPHYLLINE ER 300 MG TABLET PO SCH (21:12)
[2019-02-11] MEDS: MONTELUKAST 10 MG TABLET PO SCH (21:13)
[2019-02-12] MEDS: ALBUTEROL/IPRATROPIUM 3 ML NEB RESP TX SCH ×5 (00:19→14:43)
[2019-02-12] MEDS: ACETAMINOPHEN 325 MG TABLET PO PRN (02:18)
[2019-02-12] MEDS: CLORAZEPATE 3.75 MG TABLET PO SCH ×2 (08:57→13:04)
[2019-02-12] MEDS: amLODIPine 2.5 MG TABLET PO SCH (08:57)
[2019-02-12] MEDS: CITALOPRAM 20 MG TABLET PO SCH (08:57)
[2019-02-12] MEDS: acetaZOLAMIDE 250 MG TABLET PO SCH (08:58)
[2019-02-12] MEDS: POTASSIUM CHLORIDE 20 MEQ TABLET PO SCH (08:58)
[2019-02-12] MEDS: metOLazone 2.5 MG TABLET PO SCH (08:58)
[2019-02-12] MEDS: predniSONE 20 MG TABLET PO SCH (08:58)
[2019-02-12] MEDS: ASPIRIN EC 81 MG TABLET PO SCH (08:58)
[2019-02-12] MEDS: POLYETHYLENE GLYCOL POWDER 17 GM PACK PO SCH (08:59)
[2019-02-12] MEDS: DOCUSATE SODIUM 100 MG CAPSULE PO SCH (08:59)
[2019-02-12] MEDS: PANTOPRAZOLE 40 MG TABLET PO SCH (08:59)
[2019-02-12] MEDS: METOPROLOL SUCCINATE XL 25 MG TABLET PO SCH (08:59)
[2019-02-12] MEDS: BUDESONIDE/FORMOTEROL 160-4.5 INHALER 6 GM INH SCH (09:04)
[2019-02-12] MEDS ORDERED: POTASSIUM CHLORIDE 20 MEQ TABLET PO ONE (09:08)
[2019-02-12] MEDS: SIMETHICONE CHEW 125 MG TABLET PO SCH ×2 (09:18→13:04)
[2019-02-12] MEDS: ALBUTEROL 2.5 MG/3 ML NEB RESP TX PRN (10:13)
[2019-02-12] MEDS: AZITHROMYCIN 250 MG TABLET PO SCH (13:04)
[2019-02-12 14:54] VITALS: BP 142/86
== END 2019-02-12 15:09 | disposition home health service (06) | DRG 189 ==
LOC: N.ICU 16:58 → SUATTDRO 16:58 → N.5E 01-28 18:11
PROVIDERS: ADMIT Internal Medicine; ATTEND Internal Medicine